=== PATIENT | male | born 1990 | race African-American/Black ===

== ENCOUNTER 2017-03-04 18:19 | Emergency (ER) | payer OTHER ==
[~2017-03-04] VITALS: Ht 190.5 cm; Wt 79.4 kg
[2017-03-04 18:38] VITALS: BP 148/93
[2017-03-04 18:49] LABS: BILIRUBIN,URINE NEGATIVE (NEG); GLUCOSE,URINE NEGATIVE (NEG); NITRITE,URINE NEGATIVE (NEG); PROTEIN,URINE NEGATIVE (NEG-TRACE); UROBILINOGEN,URINE 0.2 mg/dL (0.2 mg/dL)
--- NOTE | 2017-03-04 18:51 | PHYS DOC ---
Past Medical History Past Medical History: No Pertinent History Past Surgical History: No Surgical History Smoking: Cigarettes Alcohol Use: None Drug Use: Marijuana Adult General Chief Complaint Chief Complaint: CHEST WALL PAIN HPI HPI Patient is a 26 year old male who presents with left chest wall pain today, intermittent with movement of left shoulder or use of left pectoralis. Has spasm like pain across entire left chest. Started at rest. Denies f/c, dyspnea , cough, leg pain or swelling, hemoptysis, palpitations, diaphoresis, exertional symptoms. Also complains of burning with urination for the past few days. States he started an unknown antibiotic at home for this. Concerned it may be an STD. Denies discharge or lesions or abdominal pain. Review of Systems Review of Systems Constitutional: Denies fever or chills [] Eyes: Denies change in visual acuity, redness, or eye pain [] HENT: Denies nasal congestion or sore throat [] Respiratory: Denies cough or shortness of breath [] Cardiovascular: No additional information not addressed in HPI [] GI: Denies abdominal pain, nausea, vomiting, bloody stools or diarrhea [] : Denies hematuria [] Musculoskeletal: Denies back pain or joint pain [] Integument: Denies rash or skin lesions [] Neurologic: Denies headache, focal weakness or sensory changes [] Endocrine: Denies polyuria or polydipsia [] Current Medications Current Medications Current Medications Medications (Trade) Dose Ordered Sig/Alba Start Time Stop Time Status Last Admin Dose Admin Azithromycin (Zithromax) 1,000 mg 1X ONCE 03/04/17 19:30 03/04/17 19:31 03/04/17 19:02 1,000 MG Ceftriaxone Sodium (Rocephin Im) 250 mg 1X ONCE 03/04/17 19:30 03/04/17 19:31 03/04/17 19:05 250 MG Ibuprofen (Motrin) 400 mg 1X ONCE 03/04/17 19:30 03/04/17 19:31 03/04/17 19:02 400 MG Allergies Allergies Allergies Coded Allergies Type Severity Reaction Last Updated Verified No Known Drug Allergies 03/04/17 No Physical Exam Physical Exam Constitutional: Well developed, well nourished, no acute distress, non-toxic appearance. [] HENT: Normocephalic, atraumatic, bilateral external ears normal, oropharynx moist, nose normal. [] Eyes: PERRLA, EOM. [] Neck: Normal range of motion, supple. [] Cardiovascular:Heart rate regular rhythm [] Lungs & Thorax: Bilateral breath sounds clear to auscultation. Tenderness across left chest with no palpable or visual abnormality [] Abdomen: Bowel sounds normal, soft, no tenderness. [] Genitourinary: Declined exam Skin: Warm, dry, no erythema, no rash. [] Back: Normal ROM. [] Extremities: No tenderness, ROM intact, no edema. [] Neurologic: Alert and oriented X 3, normal motor function, normal sensory function, no focal deficits noted. [] Psychologic: Affect normal, judgement normal, mood normal. [] Current Patient Data Vital Signs Vital Signs Date Time Temp Pulse Resp B/P (MAP) Pulse Ox O2 Delivery O2 Flow Rate FiO2 03/04/17 18:38 98.9 60 18 100 Room Air 98.9 Lab Values Laboratory Tests Test 03/04/17 18:29 Urine Collection Type Unknown Urine Color Yellow Urine Clarity Clear Urine pH 7.0 Urine Specific [place] <=1.005 Urine Protein Negative mg/dL (NEG-TRACE) Urine Glucose (UA) Negative mg/dL (NEG) Urine Ketones (Stick) Negative mg/dL (NEG) Urine Blood Negative (NEG) Urine Nitrite Negative (NEG) Urine Bilirubin Negative (NEG) Urine Urobilinogen Dipstick 0.2 mg/dL (0.2 mg/dL) Urine Leukocyte Esterase Negative (NEG) Urine RBC 0 /HPF (0-2) Urine WBC 0 /HPF (0-4) Urine Bacteria 0 /HPF (0-FEW) EKG EKG EKG as interpreted by me as normal sinus rhythm, rate 60, no ST-T changes, MA 202, QTC 386, no ectopy Radiology/Procedures Radiology/Procedures Chest xray as interpreted by me with no acute cardiopulmonary disease process Course & Med Decision Making Course & Med Decision Making Pertinent Labs and Imaging studies reviewed. (See chart for details) Workup is unremarkable. Discussed supportive care. Discussed smoking cessation. Discussed safe sex practices. Discussed to follow up for high blood pressure here. Return precautions given. He understands and agrees with plan. Dragon Disclaimer Dragon Disclaimer This electronic medical record was generated, in whole or in part, using a voice recognition dictation system. Departure Departure Impression: Primary Impression: Chest pain Additional Impression: Urethritis Disposition: HOME, SELF-CARE Condition: STABLE Referrals: UNKNOWN PCP NAME (PCP) Patient Instructions: Sexually Transmitted Disease, [id number] Additional Instructions: You were treated for possible gonorrhea and chlamydia. Do not have sex for 2 weeks to assure treatment works. You will be called only if your test results are positive. Follow up with your primary care doctor. Return for any concerns. Problem Qualifiers Primary Impression: Chest pain Chest pain type: unspecified Qualified Codes: R07.9 - Chest pain, unspecified Loree STROUD MD March 04, 2017 18:51
[2017-03-04 18:59] LABS: BACTERIA,URINE 0 /HPF (0-FEW); RBC,URINE 0 /HPF (0-2); WBC,URINE 0 /HPF (0-4)
[2017-03-04] MEDS ORDERED: AZITHROMYCIN 250 MG TABLET. PO ONE (19:30)
[2017-03-04] MEDS ORDERED: cefTRIAXone IM 250 MG VIAL IM ONE (19:30)
[2017-03-04] MEDS ORDERED: IBUPROFEN 400 MG TABLET. PO ONE (19:30)
--- NOTE | 2017-03-05 06:16 | EKG ---
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
--- NOTE | 2017-03-05 07:57 | RAD ---
Chest, 2 views, 03/04/2017: History: Chest, 2 views, 03/04/2017: The heart size is normal. There is a small left apical pneumothorax estimated at 5-10% in volume. No pulmonary infiltrate is seen. There is no evidence of pleural fluid. IMPRESSION: Small left pneumothorax. Note: The findings were called to personnel in the [facility] ER at 7:54 AM on 03/05/2017.
== END 2017-03-04 19:31 | disposition home or self-care (01) ==
LOC: ER 18:19
DX: R07.89 Other chest pain (principal); N34.2 Other urethritis; F17.210 Nicotine dependence, cigarettes, uncomplicated; F12.10 Cannabis abuse, uncomplicated
CPT/HCPCS: 71020; 81001; 93005; 96372; 99285; J0696; Q0144; 87491; 87591

== ENCOUNTER 2017-03-05 09:17 | Inpatient (IN) | payer OTHER ==
[~2017-03-05] VITALS: Ht 188 cm; Wt 73.5 kg
--- NOTE | 2017-03-05 09:40 | PHYS DOC ---
Past Medical History Past Medical History: No Pertinent History Past Surgical History: No Surgical History Alcohol Use: None Drug Use: Marijuana Adult General Chief Complaint Chief Complaint: OTHER COMPLAINTS [facility] Patient is a 26 year old male presents to the emergency department for a repeat chest x-ray for pneumothorax that he had yesterday upon over read by radiology. Patient states he was seen here yesterday for chest pain and discomfort with shortness of air that started suddenly. Patient states that he is still having slight shortness of air difficulty breathing. He also states that he feels as though his heart is beating irregularly and abnormal. Patient does have a history of smoking. Patient states he is having some chest discomfort in the left upper chest. He has not taken anything for pain. Review of Systems Review of Systems Constitutional: Denies fever or chills [] Eyes: Denies change in visual acuity, redness, or eye pain [] HENT: Denies nasal congestion or sore throat [] Respiratory: Denies cough c/o shortness of breath [] Cardiovascular: No additional information not addressed in HPI [] GI: Denies abdominal pain, nausea, vomiting, bloody stools or diarrhea [] : Denies dysuria or hematuria [] Musculoskeletal: Denies back pain or joint pain [] Integument: Denies rash or skin lesions [] Neurologic: Denies headache, focal weakness or sensory changes [] Endocrine: Denies polyuria or polydipsia [] Allergies Allergies Allergies Coded Allergies Type Severity Reaction Last Updated Verified No Known Drug Allergies 03/04/17 No Physical Exam Physical Exam Constitutional: Well developed, well nourished, no acute distress, non-toxic appearance. [] HENT: Normocephalic, atraumatic, bilateral external ears normal, oropharynx moist, no oral exudates, nose normal. [] Eyes: PERRLA, EOMI, conjunctiva normal, no discharge. [] Neck: Normal range of motion, no tenderness, supple, no stridor. [] Cardiovascular:Heart rate regular rhythm, no murmur [] Lungs & Thorax: Bilateral breath sounds clear to auscultation [] Skin: Warm, dry, no erythema, no rash. [] Back: No tenderness Extremities: No tenderness, no cyanosis, no clubbing, ROM intact, no edema. [] Neurologic: Alert and oriented X 3, normal motor function, normal sensory function, no focal deficits noted. [] Psychologic: Affect normal, judgement normal, mood normal. [] Current Patient Data Vital Signs Vital Signs Date Time Temp Pulse Resp B/P (MAP) Pulse Ox O2 Delivery O2 Flow Rate FiO2 03/05/17 09:17 98.0 64 18 132/81 (98) 97 Room Air 98.0 EKG EKG EKG completed at 0944 HR 50 with SR noted, NO STEMI per Dr Watson[] Radiology/Procedures Radiology/Procedures [facility] [address] [place] [address] IMAGING REPORT Signed PATIENT: KAYLYN FERRARO ACCOUNT: [id number] : 1990 LOCATION: ER AGE: 26 SEX: M EXAM STATUS: PRE ER ORD. PHYSICIAN: ROSALVA STEWART APRN REASON: patient with small pneumo yesterday, followup CXR PROCEDURE: CHEST PA & LATERAL Examination: 2 views of the chest. History: History of left-sided pain Comparison: 03/04/2017 Findings: The cardiomediastinal silhouette grossly appears unremarkable. Small left apical pneumothorax is unchanged compared to prior exam. There is no acute infiltrate identified. Impression: Small left apical pneumothorax is unchanged compared to prior exam. DICTATED and SIGNED BY: KACY OLEARY MD DATE: 03/05/17 0938 CC: ROSALVA STEWART APRN; NO PCP ~ [] Course & Med Decision Making Course & Med Decision Making Pertinent Labs and Imaging studies reviewed. (See chart for details) [address] Graves in regards to the pneumonthorax. He recommends 100% O2 per NRB and have patient placed in as observation status. [address] Domingo in regards to observation status. [] Dragon Disclaimer Dragon Disclaimer This electronic medical record was generated, in whole or in part, using a voice recognition dictation system. Departure Departure Impression: Primary Impression: Pneumothorax Disposition: 09 ADMITTED INPATIENT Admitting Physician: Other (Spoke with both Dr Domingo and Dr Valiente) Referrals: NO PCP (PCP) ROSALVA STEWART APRN March 05, 2017 09:40
--- NOTE | 2017-03-05 09:46 | EKG ---
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
[2017-03-05] MEDS ORDERED: LACTULOSE 20 GM/30 ML SOLUTION. PO PRN (10:30)
[2017-03-05] MEDS ORDERED: MAGNESIUM HYDROXIDE 2,400 MG/30 ML ORAL.SUSP. PO PRN (10:30)
[2017-03-05] MEDS ORDERED: KETOROLAC TROMETHAMINE 30 MG/ML INJ. IV PRN (10:30)
[2017-03-05] MEDS ORDERED: MAG HYDROX/ALUMINUM HYD/SIMETH 30 ML ORAL.SUSP PO PRN (10:30)
[2017-03-05] MEDS ORDERED: ONDANSETRON PF 4 MG/2 ML VIAL. IV PRN (10:30)
[2017-03-05] MEDS ORDERED: PROCHLORPERAZINE 25 MG SUPP.RECT. PR PRN (10:30)
[2017-03-05] MEDS ORDERED: PROCHLORPERAZINE 10 MG/2 ML VIAL. IV PRN (10:30)
[2017-03-05] MEDS ORDERED: CALCIUM CARBONATE 500 MG TAB.CHEW PO PRN (10:30)
[2017-03-05] MEDS ORDERED: ACETAMINOPHEN 325 MG TABLET. PO PRN (10:30)
[2017-03-05] MEDS ORDERED: BISACODYL 10 MG SUPP.RECT. PR PRN (10:30)
--- NOTE | 2017-03-05 10:49 | ACF ---
Admission Forms Criteria PNEUMOTHORAX Clinical Indications for Admission to Inpatient Care (Place 'X' for any and all applicable criteria): Admission for ANY ONE of the following (1),(2): [ ]I. Pneumothorax caused by associated lung disease (eg, COPD, cystic fibrosis, lung cancer, AIDS)(6): [ ]II. Recurrent episode of pneumothorax9 [ ]III. Traumatic pneumothorax (10)(11)(12) [ ]IV. Tension pneumothorax [ ]V. Hypotension [ ]. Respiratory distress [ ]VII. Pneumothorax exacerbating significant comorbidity (eg, heart failure) [X]VIII. Inpatient admission required rather than observation care (see Pneumothorax: Observation Care guideline as appropriate) because of ANY ONE of the following (13)(14) [ ]a) Symptomatic pneumothorax that is progressive or persistent [ ]b) Infection identified (eg, pneumonia) that requires inpatient management [ ]c) Severe pain requiring acute inpatient management [ ]d) Supplemental O2 or respiratory therapy for over 24 hrs that are performable only in acute inpatient setting [ ]e) Chest tube placement with active evacuation (eg, suction, drainage) (15) [ ]f) Epidural analgesia [X]g) Other condition, treatment or monitoring requiring inpatient admission Extended stay beyond goal length of stay may be needed for (24) [ ]a) Secondary pneumothorax [ ]b) Pneumothorax assoc with trauma(eg, multiple fractured ribs) [ ]c) Recurrent episode of primary spontaneous pneumothorax. [ ]d) Older patients [ ]e) Tension pneumothorax [ ]f) Pulmonary edema [ ]g) Persistent air leak The original [employer] content created by [employer] has been revised. The portions of the content which have been revised are identified through the use of italic text or in bold, and [facility] has neither reviewed nor approved the modified material. All other unmodified content is copyright [employer]. Please see references footnoted in the original [employer] edition 2016 Admission Criteria Met?: Yes BRINDA DASILVA March 05, 2017 10:49
[2017-03-05] MEDS: DOCUSATE SODIUM 100 MG CAPSULE. PO SCH ×2 (11:00→21:00)
--- NOTE | 2017-03-05 11:21 | PDOC1 ---
History and Physical Date of Admission Date of Admission DATE: 03/05/17 TIME: 11:15 Identification/Chief Complaint Chief Complaint worsened left sided CP Problems: Source Source: Caregiver, Chart review, Patient History of Present Illness History of Present Illness 26 y.o AA male, no significant past medical but is a heavy smoker, consumes 1/2 ppday (has cut down from 1ppday), smoking for > 10 yrs now, came to er yesterday bec of pleuritic CP, sent home, but came back today after worsened pleuritic CP. CXR showed 10% PTX. Pulmo consulted, advised admission for OBS, Mother at bedside, lots of questions and counselling done, Heavy smoking in family (father), Denies trauma, CLaims last 3 yrs ago he felt similar pain, did not seek medical consult that time, PAst surgical none NKDA Denies etoh or recreational drugs Fam hx: HTN and smoking IMagingL i have personally reviewed,. Small left apical pneumothorax is unchanged compared to prior exam. Past Medical History Pulmonary: No pertinent hx GI: No pertinent hx Heme/Onc: No pertinent hx Hepatobiliary: No pertinent hx Psych: No pertinent hx Rheumatologic: No pertinent hx Infectious disease: No pertinent hx ENT: No pertinent hx Renal/: No pertinent hx Endocrine: No pertinent hx Dermatology: No pertinent hx Past Surgical History Past Surgical History: No pertinent history Family History Family History: Hypertension Social History Smoke: <1 pack per day ALCOHOL: none Drugs: None Current Problem List Problem List Problems Medical Problems: (1) Pneumothorax Status: Acute Problems: Current Medications Current Medications Current Medications Ondansetron HCl (Zofran) 4 mg PRN Q6HRS PRN IV NAUSEA/VOMITING; Start 03/05/17 at 10:30 Prochlorperazine Edisylate (Compazine) 10 mg PRN Q6HRS PRN IV NAUSEA/VOMITING; Start 03/05/17 at 10:30 Prochlorperazine (Compazine) 25 mg PRN Q12HR PRN CO NAUSEA/VOMITING; Start at 10:30 Al Hydroxide/Mg Hydroxide (Mylanta Plus Xs) 30 ml PRN Q3HRS PRN PO HEARTBURN / GAS; Start 03/05/17 at 10:30 Calcium Carbonate/ Glycine (Tums) 500 mg PRN Q3HRS PRN PO UPSET STOMACH; Start 03/05/17 at 10:30 Oxycodone HCl (Roxicodone) 5 mg PRN Q3HRS PRN PO BREAKTHROUGH PAIN; Start 03/05 at 10:30 Ketorolac Tromethamine (Toradol) 30 mg PRN Q6HRS PRN IV PAIN; Start 03/05/17 at 10:30; Stop 03/10/17 at 10:29 Acetaminophen (Tylenol) 650 mg PRN Q6HRS PRN PO Headaches, Temp > 101.5F; Start 03/05/17 at 10:30 Docusate Sodium (Colace) 100 mg BID PO ; Start 03/05/17 at 11:00 Magnesium Hydroxide (Milk Of Magnesia) 2,400 mg PRN Q12HR PRN PO CONSTIPATION; Start 03/05/17 at 10:30 Lactulose 20 gm PRN Q12HR PRN PO CONSTIPATION; Start 03/05/17 at 10:30 Bisacodyl (Dulcolax Supp) 10 mg PRN DAILY PRN CO CONSTIPATION; Start 03/05/17 at 10:30 Allergies Allergies: Coded Allergies: No Known Drug Allergies (Unverified , 03/04/17) ROS General: No: Chills, Night Sweats, Fatigue, Malaise, Appetite, Other PSYCHOLOGICAL ROS: No: Anxiety, Behavioral Disorder, Concentration difficultie , Decreased libido, Depression, Disorientation, Hallucinations, Hostility, Irritablity, Memory difficulties, Mood Swings, Obsessive thoughts, Physical abuse, Sexual abuse, Sleep disturbances, Suicidal ideation, Other Eyes: No Blurry vision, No Decreased vision, No Double vision, No Dry eyes, No Excessive tearing, No Eye Pain, No Itchy Eyes, No Loss of vision, No Photophobia , No Scotomata, No Uses contacts, No Uses glasses, No Other HEENT: No: Heacaches, Visual Changes, Hearing change, Nasal congestion, Nasal discharge, Oral lesions, Sinus pain, Sore Throat, Epistaxis, Sneezing, Snoring, Tinnitus, Vertigo, Vocal changes, Other Hematological and Lymphatic: No: Bleeding Problems, Blood Clots, Blood Transfusions, Brusing, Night Sweats, Pallor, Swollen Lymph Nodes, Other Breast: No New/Changing Breast Lumps, No Nipple changes, No Nipple discharge, No Other Respiratory: YES: Pleuritic Pain, Shortness of breath Cardiovascular: No Chest Pain, No Palpitations, No Orthopnea, No Paroxysmal Noc. Dyspnea, No Edema, No Lt Headedness, No Other Gastrointestinal: No Nausea, No Vomiting, No Abdominal Pain, No Diarrhea, No Constipation, No Melena, No Hematochezia, No Other Genitourinary: No Dysuria, No Frequency, No Incontinence, No Hematuria, No Retention, No Discharge, No Urgency, No Pain, No Flank Pain, No Other, No , No , No , No , No , No , No Musculoskeletal: No Gait Disturbance, No Joint Pain, No Joint Stiffness, No Joint Swelling, No Muscle Pain, No Muscular Weakness, No Pain In:, No Swelling In:, No Other Neurological: No Behavorial Changes, No Bowel/Bladder ControlChng, No Confusion , No Dizziness, No Gait Disturbance, No Headaches, No Impaired Coord/balance, No Memory Loss, No Numbness/Tingling, No Seizures, No Speech Problems, No Tremors, No Visual Changes, No Weakness, No Other Skin: No Dry Skin, No Eczema, No Hair Changes, No Lumps, No Mole Changes, No Mottling, No Nail Changes, No Pruritus, No Rash, No Skin Lesion Changes, No Other, No Acne Physical Exam General: Alert, Oriented X3, Cooperative, No acute distress HEENT: Atraumatic, PERRLA Lungs: Normal air movement, Other (dec BS left upper lobe) Heart: S1S2, RRR, no thrills, no rubs, no gallops, no murmurs Cardiovascular: S1, S2 Breasts: Normal Abdomen: Normal bowel sounds, Soft, No tenderness, No hepatosplenomegaly, No masses Male Genitals Exam: normal genitalia, normal prostate Rectal Exam: not examined PELVIC: Nml ext genitalia Extremities: No clubbing, No cyanosis, No edema, Normal pulses, No tenderness/ swelling Skin: No rashes, No breakdown, No significant lesion Neuro: Normal gait, Normal speech, Strength at 5/5 X4 ext, Normal tone, Sensation intact, Cranial nerves 3-12 NL, Reflexes 2+ Psych/Mental Status: Mental status NL, Mood NL Vitals Vitals Vital Signs Date Time Temp Pulse Resp B/P (MAP) Pulse Ox O2 Delivery O2 Flow Rate FiO2 03/05/17 09:17 98.0 64 18 132/81 (98) 97 Room Air 98.0 VTE Prophylaxis Ordered VTE Prophylaxis Devices: Yes VTE Pharmacological Prophylaxi: Yes Assessment/Plan Assessment/Plan 1. Small left apical pneumothorax, spontaneous 2. SMOker PLAN: OBS admit Toradol prn for pain O2 support CXR again gary, Pulmo consult Nicotine prn HEavy counselling done, at least 30 mins in room alone Seen at ER EILEEN ANGELES MD March 05, 2017 11:21
[2017-03-05] MEDS ORDERED: IBUPROFEN 600 MG TABLET. PO PRN (11:30)
--- NOTE | 2017-03-05 12:00 | PDOC ---
Provider Note Provider Note dictated MIKE TREJO MD March 05, 2017 12:00
[2017-03-05 12:28] VITALS: BP 129/83
--- NOTE | 2017-03-05 12:44 | CONS ---
DATE OF CONSULTATION: 03/05/2017 ATTENDING PHYSICIAN: Dr. Domingo. REASON FOR CONSULTATION: Chest pain and pneumothorax. HISTORY OF PRESENT ILLNESS: The patient is a 26-year-old -English male who has no significant past medical history except tobacco use for 10 years, half pack per day. He presented to the ER yesterday with complaint of sharp left-sided pleuritic chest pain. He said it felt like a burning sensation as well. He took some Tums without much improvement. His chest x-ray has shown about 10% pneumothorax. He was sent from the ER. He came back with similar symptoms, which were nonresolving. Another chest x-ray showed unchanged left apical pneumothorax about 10% in size. The patient states that similar episodes have happened in the past as well. About a month ago, he had similar presentation of about same size, and also about a year ago, he had same presentation when he had sharp chest pain, but he never had any medical attention until this hospitalization. No history of any other substance abuse. PAST MEDICAL HISTORY: Unremarkable. PAST SURGICAL HISTORY: Unremarkable. FAMILY HISTORY: Hypertension. SOCIAL HISTORY: Smoker, half pack per day for 10 years. REVIEW OF SYSTEMS: Twelve-point system was obtained. Pertinent positives discussed in my history of present illness, otherwise noncontributory. All systems that were negative were reviewed as well. MEDICATIONS: Reviewed as listed in the MRAD. PHYSICAL EXAMINATION: VITAL SIGNS: Stable. Pulse oximetry is 97% on room air. NECK: Supple. LUNGS: Diminished breath sounds bilaterally. CARDIOVASCULAR: Regular rate and rhythm. ABDOMEN: Soft. EXTREMITIES: With no pitting edema. LABORATORY DATA: Reviewed. His urinalysis was available, but no other labs were seen. IMPRESSION: 1. Spontaneous left-sided pneumothorax about 10% in size. I suspect that this may be his second or third episode. He had similar presentations a month ago and also a year ago, but he never had any medical attention at that time. At this point, the pneumothorax is small and does not need chest tube. I would place him on 100% FiO2 and followup chest x-ray. I will also do a CT chest to rule out any apical blebs. 2. History of tobaccoism, half pack per day for 10 years. RECOMMENDATIONS: 1. A 100% oxygen for 24 hours and repeat chest x-ray in a.m. to make sure there is improvement in the pneumothorax. 2. We will obtain noncontrast CT chest in the morning to assess for apical blebs. 3. I have discussed with the patient and the mother. It appears clinically that this would be his second or third pneumothorax in the same site, though he never had any medical attention in the past two occasions. If the CT chest shows apical blebs, then he may be a candidate for bullectomy/VAT/mechanical pleurodesis. We will make further recommendations after review of CT chest. MIKE TREJO MD DR: CASEY/adrián JOB#: [id number] / [id number]
[2017-03-05 14:55] VITALS: BP 124/82
[2017-03-05 19:00] VITALS: BP 125/80
[2017-03-05 20:03] VITALS: BP 125/80
[2017-03-05 23:00] VITALS: BP 104/64
[2017-03-06 03:16] VITALS: BP 120/77
[2017-03-06 07:00] VITALS: BP 122/70
[2017-03-06] MEDS: DOCUSATE SODIUM 100 MG CAPSULE. PO SCH ×2 (08:40→21:00)
--- NOTE | 2017-03-06 09:08 | RAD ---
Examination: CT chest without contrast History: History of apical blebs, pneumothorax Comparison: Radiograph from 03/05/2017 Technique: Axial CT images of the chest were performed without contrast. Coronal and sagittal reformats are performed. PQRS Compliance Statement: One or more of the following individualized dose reduction techniques were utilized for this examination: 1. Automated exposure control 2. Adjustment of the mA and/or kV according to patient size 3. Use of iterative reconstruction technique Findings: Small left apical and left basal pneumothorax identified. Small apical blebs are identified bilaterally. There is minimal apical lung thickening identified in the left lung apex. No evidence of pleural effusion. The central airways are patent. The heart size grossly appears unremarkable The visualized noncontrasted liver, spleen, grossly appears unremarkable. No evidence of lytic bony destructive lesion identified Impression: 1. Small left apical and small left anterior basal pneumothorax is identified.
--- NOTE | 2017-03-06 09:12 | RAD ---
Portable chest, 03/06/2017: History: Follow-up pneumothorax Comparison is made to yesterday's study. The small left-sided pneumothorax has decreased in size. The lungs are clear. The heart size is normal. There is no evidence of pleural fluid. No new abnormality is detected. IMPRESSION: Improving small left pneumothorax.
--- NOTE | 2017-03-06 09:56 | PDOC ---
PULMONARY PROGRESS NOTES Subjective still has left CP PTX reduced to 5% Vitals Vital Signs Date Time Temp Pulse Resp B/P (MAP) Pulse Ox O2 Delivery O2 Flow Rate FiO2 03/06/17 07:00 97.7 50 20 122/70 (87) 99 Room Air 97.7 03/05/17 19:45 15.0 General: Alert, No acute distress Lungs: Clear Cardiovascular: S1, S2 Abdomen: Soft Neuro Exam: Alert Extremities: No Edema Skin: Warm Impression . 1. Spontaneous left-sided pneumothorax about 10% in size. I suspect that this may be his second or third episode. He had similar presentations a month ago and also a year ago, but he never had any medical attention at that time. At this point, the pneumothorax has improved with 100%FIO2. CT chest shows apical blebs. 2. History of tobaccoism, half pack per day for 10 years. Plan . 1. Nasal canula 2. Pain control 3. I have discussed with the patient and the mother. It appears clinically that this would be his second or third pneumothorax in the same site, though he never had any medical attention in the past two occasions. CT chest shows apical blebs, he is reasonable candidate for bullectomy/VAT/mechanical pleurodesis. will consult [facility]. All agree. d/w MIKE Garnica MD March 06, 2017 09:56
[2017-03-06 11:00] VITALS: BP 125/82
[2017-03-06 11:01] LABS: BASO % 1 % (0-3); EOS % 5 % (0-3); HEMATOCRIT 47.4 % (39.0-53.0); LYMPH # 1.3 x10^3/uL (1.0-4.8); LYMPH % 37 % (24-48); MEAN CORPUSCULAR HEMOGLOBIN 32 pg (25-35); MEAN CORPUSCULAR HGB CONC 34 g/dL (31-37); MEAN CORPUSCULAR VOLUME 95 fL (79-100); MONO % 9 % (0-9); NEUT % 49 % (31-73); PLATELET COUNT 179 x10^3/uL (140-400); RED BLOOD COUNT 4.99 x10^6/uL (4.30-5.70); RED CELL DISTRIBUTION WIDTH 13.1 % (11.5-14.5); WHITE BLOOD COUNT 3.6 x10^3/uL (4.0-11.0)
[2017-03-06 11:13] LABS: CALCIUM 9.3 mg/dL (8.5-10.1); CREATININE 0.9 mg/dL (0.7-1.3); GFR 123.4; POTASSIUM 3.8 mmol/L (3.5-5.1)
--- NOTE | 2017-03-06 11:16 | PDOC ---
PROGRESS NOTES Chief Complaint Chief Complaint chest pain 1. Small left apical pneumothorax, spontaneous 2. tobacco use 3. anxiety d/o 4. pulmonary blebs on CT History of Present Illness History of Present Illness CT surg consult discussed with PULM discussed with patient and mom at length Nicotine prn Vitals Vitals Vital Signs Date Time Temp Pulse Resp B/P (MAP) Pulse Ox O2 Delivery O2 Flow Rate FiO2 03/06/17 07:00 97.7 50 20 122/70 (87) 99 Room Air 97.7 03/05/17 19:45 15.0 Physical Exam General: Alert, Oriented X3, Cooperative, No acute distress Heart: Regular rate Lungs: Clear Abdomen: Normal bowel sounds, Soft, No tenderness, No hepatosplenomegaly, No masses Extremities: No clubbing, No cyanosis, No edema, Normal pulses, No tenderness/ swelling Skin: No rashes, No breakdown, No significant lesion Labs LABS Laboratory Tests Test 03/06/17 10:30 White Blood Count 3.6 x10^3/uL (4.0-11.0) Red Blood Count 4.99 x10^6/uL (4.30-5.70) Hemoglobin 16.0 g/dL (13.0-17.5) Hematocrit 47.4 % (39.0-53.0) Mean Corpuscular Volume 95 fL (79-100) Mean Corpuscular Hemoglobin 32 pg (25-35) Mean Corpuscular Hemoglobin Concent 34 g/dL (31-37) Red Cell Distribution Width 13.1 % (11.5-14.5) Platelet Count 179 x10^3/uL (140-400) Neutrophils (%) (Auto) 49 % (31-73) Lymphocytes (%) (Auto) 37 % (24-48) Monocytes (%) (Auto) 9 % (0-9) Eosinophils (%) (Auto) 5 % (0-3) Basophils (%) (Auto) 1 % (0-3) Neutrophils # (Auto) 1.8 x10^3uL (1.8-7.7) Lymphocytes # (Auto) 1.3 x10^3/uL (1.0-4.8) Monocytes # (Auto) 0.3 x10^3/uL (0.0-1.1) Eosinophils # (Auto) 0.2 x10^3/uL (0.0-0.7) Basophils # (Auto) 0.0 x10^3/uL (0.0-0.2) Review of Systems Review of Systems pain, pleuritic, no n.v.d Assessment and Plan Assessmemt and Plan Problems Medical Problems: (1) Pneumothorax Status: Acute Problems: Comment Review of Relevant I have reviewed the following items steve (where applicable) has been applied. Labs Laboratory Tests Test 03/06/17 10:30 White Blood Count 3.6 x10^3/uL (4.0-11.0) Red Blood Count 4.99 x10^6/uL (4.30-5.70) Hemoglobin 16.0 g/dL (13.0-17.5) Hematocrit 47.4 % (39.0-53.0) Mean Corpuscular Volume 95 fL (79-100) Mean Corpuscular Hemoglobin 32 pg (25-35) Mean Corpuscular Hemoglobin Concent 34 g/dL (31-37) Red Cell Distribution Width 13.1 % (11.5-14.5) Platelet Count 179 x10^3/uL (140-400) Neutrophils (%) (Auto) 49 % (31-73) Lymphocytes (%) (Auto) 37 % (24-48) Monocytes (%) (Auto) 9 % (0-9) Eosinophils (%) (Auto) 5 % (0-3) Basophils (%) (Auto) 1 % (0-3) Neutrophils # (Auto) 1.8 x10^3uL (1.8-7.7) Lymphocytes # (Auto) 1.3 x10^3/uL (1.0-4.8) Monocytes # (Auto) 0.3 x10^3/uL (0.0-1.1) Eosinophils # (Auto) 0.2 x10^3/uL (0.0-0.7) Basophils # (Auto) 0.0 x10^3/uL (0.0-0.2) Laboratory Tests Test 03/06/17 10:30 White Blood Count 3.6 x10^3/uL (4.0-11.0) Red Blood Count 4.99 x10^6/uL (4.30-5.70) Hemoglobin 16.0 g/dL (13.0-17.5) Hematocrit 47.4 % (39.0-53.0) Mean Corpuscular Volume 95 fL (79-100) Mean Corpuscular Hemoglobin 32 pg (25-35) Mean Corpuscular Hemoglobin Concent 34 g/dL (31-37) Red Cell Distribution Width 13.1 % (11.5-14.5) Platelet Count 179 x10^3/uL (140-400) Neutrophils (%) (Auto) 49 % (31-73) Lymphocytes (%) (Auto) 37 % (24-48) Monocytes (%) (Auto) 9 % (0-9) Eosinophils (%) (Auto) 5 % (0-3) Basophils (%) (Auto) 1 % (0-3) Neutrophils # (Auto) 1.8 x10^3uL (1.8-7.7) Lymphocytes # (Auto) 1.3 x10^3/uL (1.0-4.8) Monocytes # (Auto) 0.3 x10^3/uL (0.0-1.1) Eosinophils # (Auto) 0.2 x10^3/uL (0.0-0.7) Basophils # (Auto) 0.0 x10^3/uL (0.0-0.2) Medications Current Medications Ondansetron HCl (Zofran) 4 mg PRN Q6HRS PRN IV NAUSEA/VOMITING; Start 03/05/17 at 10:30 Prochlorperazine Edisylate (Compazine) 10 mg PRN Q6HRS PRN IV NAUSEA/VOMITING; Start 03/05/17 at 10:30 Prochlorperazine (Compazine) 25 mg PRN Q12HR PRN [place] NAUSEA/VOMITING; Start at 10:30 Al Hydroxide/Mg Hydroxide (Mylanta Plus Xs) 30 ml PRN Q3HRS PRN PO HEARTBURN / GAS; Start 03/05/17 at 10:30 Calcium Carbonate/ Glycine (Tums) 500 mg PRN Q3HRS PRN PO UPSET STOMACH; Start 03/05/17 at 10:30 Oxycodone HCl (Roxicodone) 5 mg PRN Q3HRS PRN PO BREAKTHROUGH PAIN; Start 03/05 at 10:30 Ketorolac Tromethamine (Toradol) 30 mg PRN Q6HRS PRN IV PAIN; Start 03/05/17 at 10:30; Stop 03/10/17 at 10:29 Acetaminophen (Tylenol) 650 mg PRN Q6HRS PRN PO Headaches, Temp > 101.5F; Start 03/05/17 at 10:30 Docusate Sodium (Colace) 100 mg BID PO ; Start 03/05/17 at 11:00 Magnesium Hydroxide (Milk Of Magnesia) 2,400 mg PRN Q12HR PRN PO CONSTIPATION; Start 03/05/17 at 10:30 Lactulose 20 gm PRN Q12HR PRN PO CONSTIPATION; Start 03/05/17 at 10:30 Bisacodyl (Dulcolax Supp) 10 mg PRN DAILY PRN [place] CONSTIPATION; Start 03/05/17 at 10:30 Ibuprofen (Motrin) 600 mg PRN Q6HRS PRN PO INFLAMMATION; Start 03/05/17 at 11: 30 Vitals/I & O Vital Sign - Last 24 Hours 03/05/17 03/05/17 03/05/17 03/05/17 12:21 12:28 14:55 19:00 Temp 98.5 98.4 97.7 98.5 98.4 97.7 Pulse 56 53 60 Resp 14 20 18 B/P (MAP) 129/83 (98) 124/82 (96) 125/80 (95) Pulse Ox 98 100 100 O2 Delivery Non-Rebreather Room Air O2 Flow Rate 15.0 03/05/17 03/05/17 03/06/17 03/06/17 19:45 23:00 03:16 07:00 Temp 97.5 97.6 97.7 97.5 97.6 97.7 Pulse 51 50 50 Resp 18 18 20 B/P (MAP) 104/64 (77) 120/77 (91) 122/70 (87) Pulse Ox 99 100 99 O2 Delivery Non-Rebreather Room Air O2 Flow Rate 15.0 Intake and Output 03/05/17 03/05/17 03/06/17 14:59 22:59 06:59 Intake Total 450 ml Balance 450 ml PACO DYSON MD March 06, 2017 11:16
[2017-03-06 15:00] VITALS: BP 124/73
[2017-03-06 16:35] LABS: PROTHROMBIN TIME PATIENT 12.6 SEC (11.7-14.0)
--- NOTE | 2017-03-06 16:44 | PDOC2 ---
CONSULT Date of Consult Date of Consult DATE: 03/06/17 TIME: 16:32 Reason for Consult Reason for Consult: Recurrent left pneumothorax Referring Physician Referring Physician: Mac Graves MD Identification/Chief Complaint Chief Complaint Shortness of breath and left-sided pleuritic pain Source Source: Chart review, Patient History of Present Illness Reason for Visit: Mr. Summers is a 26-year-old otherwise healthy male, who presented to our emergency room with acute onset of shortness of breath and left-sided pleuritic pain. A chest x-ray he was found to have a left-sided pneumothorax approximately 10%. This was treated conservatively and has now nearly resolved. The patient reports that he has had 2 analogous episodes which were very bothersome and concerning for him, nevertheless he never seek medical attention. CT of the chest showed that he has a relatively large bleb at the apex of the left upper lobe. The smaller blebs in the right upper lobe. As this appears to be a recurrent spontaneous pneumothorax, I was consulted to consider the patient for a left VATS, wedge resection of the left upper lobe bullous and pleurodesis. Past Medical History Pulmonary: No pertinent hx GI: No pertinent hx Heme/Onc: No pertinent hx Hepatobiliary: No pertinent hx Psych: No pertinent hx Musculoskeletal: Other (pelvic fracture) Rheumatologic: No pertinent hx Infectious disease: No pertinent hx ENT: No pertinent hx Renal/: No pertinent hx Endocrine: No pertinent hx Dermatology: No pertinent hx Past Surgical History Past Surgical History: No pertinent history Family History Family History: Hypertension Social History <1 pack per day ALCOHOL: none Drugs: None Current Problem List Problem List Problems Medical Problems: (1) Pneumothorax Status: Acute Current Medications Current Medications Current Medications Ondansetron HCl (Zofran) 4 mg PRN Q6HRS PRN IV NAUSEA/VOMITING 1ST CHOICE; Start 03/05/17 at 10:30 Prochlorperazine Edisylate (Compazine) 10 mg PRN Q6HRS PRN IV NAUSEA/VOMITING 2ND CHOICE; Start 03/05/17 at 10:30 Prochlorperazine (Compazine) 25 mg PRN Q12HR PRN [place] NAUSEA/VOMITING; Start at 10:30 Al Hydroxide/Mg Hydroxide (Mylanta Plus Xs) 30 ml PRN Q3HRS PRN PO HEARTBURN / GAS; Start 03/05/17 at 10:30 Calcium Carbonate/ Glycine (Tums) 500 mg PRN Q3HRS PRN PO UPSET STOMACH; Start 03/05/17 at 10:30 Oxycodone HCl (Roxicodone) 5 mg PRN Q3HRS PRN PO BREAKTHROUGH PAIN; Start 03/05 at 10:30 Ketorolac Tromethamine (Toradol) 30 mg PRN Q6HRS PRN IV PAIN; Start 03/05/17 at 10:30; Stop 03/10/17 at 10:29 Acetaminophen (Tylenol) 650 mg PRN Q6HRS PRN PO Headaches, Temp > 101.5F; Start 03/05/17 at 10:30 Docusate Sodium (Colace) 100 mg BID PO ; Start 03/05/17 at 11:00 Magnesium Hydroxide (Milk Of Magnesia) 2,400 mg PRN Q12HR PRN PO CONSTIPATION; Start 03/05/17 at 10:30 Lactulose 20 gm PRN Q12HR PRN PO CONSTIPATION; Start 03/05/17 at 10:30 Bisacodyl (Dulcolax Supp) 10 mg PRN DAILY PRN [place] CONSTIPATION; Start 03/05/17 at 10:30 Ibuprofen (Motrin) 600 mg PRN Q6HRS PRN PO INFLAMMATION Last administered on t 12:33; Start 03/05/17 at 11:30 Allergies Allergies: Coded Allergies: No Known Drug Allergies (Unverified , 03/07/17) ROS General: No: Chills, Night Sweats, Fatigue, Malaise, Appetite PSYCHOLOGICAL ROS: No: Anxiety, Behavioral Disorder, Concentration difficultie , Decreased libido, Depression, Disorientation, Hallucinations, Hostility, Irritablity, Memory difficulties, Mood Swings, Obsessive thoughts, Physical abuse, Sexual abuse, Sleep disturbances, Suicidal ideation Eyes: No Blurry vision, No Decreased vision, No Double vision, No Dry eyes, No Excessive tearing, No Eye Pain, No Itchy Eyes, No Loss of vision, No Photophobia , No Scotomata, No Uses contacts, No Uses glasses HEENT: No: Heacaches, Visual Changes, Hearing change, Nasal congestion, Nasal discharge, Oral lesions, Sinus pain, Sore Throat, Epistaxis, Sneezing, Snoring, Tinnitus, Vertigo, Vocal changes ALLERGY AND IMMUNOLOGY: No: Hives, Insect Bite Sensitivity, Itchy/Watery Eyes, Nasal Congestion, Post Nasal Drip, Seasonal Allergies Hematological and Lymphatic: No: Bleeding Problems, Blood Clots, Blood Transfusions, Brusing, Night Sweats, Pallor, Swollen Lymph Nodes ENDOCRINE: No: Breast Changes, Galactorrhea, Hair Pattern Changes, Hot Flashes , Malaise/lethargy, Mood Swings, Palpitations, Polydipsia/polyuria, Skin Changes , Temperature Intolerance, Unexpected Weight Changes Respiratory: YES: Pleuritic Pain, Shortness of breath, No: Cough, Hemoptysis, Orthopnea, SOB with excertion, Sputum Changes, Stridor , Tachypnea, Wheezing Cardiovascular: No Chest Pain, No Palpitations, No Orthopnea, No Paroxysmal Noc. Dyspnea, No Edema, No Lt Headedness Gastrointestinal: No Nausea, No Vomiting, No Abdominal Pain, No Diarrhea, No Constipation, No Melena, No Hematochezia Genitourinary: No Dysuria, No Frequency, No Incontinence, No Hematuria, No Retention, No Discharge, No Urgency, No Pain, No Flank Pain Musculoskeletal: No Gait Disturbance, No Joint Pain, No Joint Stiffness, No Joint Swelling, No Muscle Pain, No Muscular Weakness, No Pain In:, No Swelling In: Neurological: No Behavorial Changes, No Bowel/Bladder ControlChng, No Confusion , No Dizziness, No Gait Disturbance, No Headaches, No Impaired Coord/balance, No Memory Loss, No Numbness/Tingling, No Seizures, No Speech Problems, No Tremors, No Visual Changes, No Weakness Skin: No Dry Skin, No Eczema, No Hair Changes, No Lumps, No Mole Changes, No Mottling, No Nail Changes, No Pruritus, No Rash, No Skin Lesion Changes, No Acne Physical Exam General: Alert, Oriented X3, No acute distress HEENT: Atraumatic, PERRLA, EOMI Lungs: Normal air movement Heart: Regular rate, Normal S1, Normal S2 Abdomen: Normal bowel sounds, Soft, No tenderness, No hepatosplenomegaly Extremities: No edema, Normal pulses Skin: No significant lesion Neuro: Normal gait, Normal speech, Strength at 5/5 X4 ext, Normal tone, Sensation intact, Cranial nerves 3-12 NL Psych/Mental Status: Mental status NL MUSCULOSKELETAL: No deformity Vitals VITALS Vital Signs Date Time Temp Pulse Resp B/P (MAP) Pulse Ox O2 Delivery O2 Flow Rate FiO2 03/06/17 15:00 98.2 62 20 124/73 (90) 99 Nasal Cannula 4.0 98.2 Labs Labs Laboratory Tests Test 03/06/17 10:30 White Blood Count 3.6 x10^3/uL (4.0-11.0) Red Blood Count 4.99 x10^6/uL (4.30-5.70) Hemoglobin 16.0 g/dL (13.0-17.5) Hematocrit 47.4 % (39.0-53.0) Mean Corpuscular Volume 95 fL (79-100) Mean Corpuscular Hemoglobin 32 pg (25-35) Mean Corpuscular Hemoglobin Concent 34 g/dL (31-37) Red Cell Distribution Width 13.1 % (11.5-14.5) Platelet Count 179 x10^3/uL (140-400) Neutrophils (%) (Auto) 49 % (31-73) Lymphocytes (%) (Auto) 37 % (24-48) Monocytes (%) (Auto) 9 % (0-9) Eosinophils (%) (Auto) 5 % (0-3) Basophils (%) (Auto) 1 % (0-3) Neutrophils # (Auto) 1.8 x10^3uL (1.8-7.7) Lymphocytes # (Auto) 1.3 x10^3/uL (1.0-4.8) Monocytes # (Auto) 0.3 x10^3/uL (0.0-1.1) Eosinophils # (Auto) 0.2 x10^3/uL (0.0-0.7) Basophils # (Auto) 0.0 x10^3/uL (0.0-0.2) Sodium Level 139 mmol/L (136-145) Potassium Level 3.8 mmol/L (3.5-5.1) Chloride Level 103 mmol/L (98-107) Carbon Dioxide Level 29 mmol/L (21-32) Anion Gap 7 (6-14) Blood Urea Nitrogen 14 mg/dL (8-26) Creatinine 0.9 mg/dL (0.7-1.3) Estimated GFR (Cockcroft-Gault) 123.4 Glucose Level 85 mg/dL (70-99) Calcium Level 9.3 mg/dL (8.5-10.1) Laboratory Tests Test 03/06/17 10:30 White Blood Count 3.6 x10^3/uL (4.0-11.0) Red Blood Count 4.99 x10^6/uL (4.30-5.70) Hemoglobin 16.0 g/dL (13.0-17.5) Hematocrit 47.4 % (39.0-53.0) Mean Corpuscular Volume 95 fL (79-100) Mean Corpuscular Hemoglobin 32 pg (25-35) Mean Corpuscular Hemoglobin Concent 34 g/dL (31-37) Red Cell Distribution Width 13.1 % (11.5-14.5) Platelet Count 179 x10^3/uL (140-400) Neutrophils (%) (Auto) 49 % (31-73) Lymphocytes (%) (Auto) 37 % (24-48) Monocytes (%) (Auto) 9 % (0-9) Eosinophils (%) (Auto) 5 % (0-3) Basophils (%) (Auto) 1 % (0-3) Neutrophils # (Auto) 1.8 x10^3uL (1.8-7.7) Lymphocytes # (Auto) 1.3 x10^3/uL (1.0-4.8) Monocytes # (Auto) 0.3 x10^3/uL (0.0-1.1) Eosinophils # (Auto) 0.2 x10^3/uL (0.0-0.7) Basophils # (Auto) 0.0 x10^3/uL (0.0-0.2) Sodium Level 139 mmol/L (136-145) Potassium Level 3.8 mmol/L (3.5-5.1) Chloride Level 103 mmol/L (98-107) Carbon Dioxide Level 29 mmol/L (21-32) Anion Gap 7 (6-14) Blood Urea Nitrogen 14 mg/dL (8-26) Creatinine 0.9 mg/dL (0.7-1.3) Estimated GFR (Cockcroft-Gault) 123.4 Glucose Level 85 mg/dL (70-99) Calcium Level 9.3 mg/dL (8.5-10.1) Images Images CT chest: Small left apical and left basal pneumothorax identified. Small apical blebs are identified bilaterally. There is minimal apical lung thickening identified in the left lung apex. No evidence of pleural effusion. The central airways are patent. The heart size grossly appears unremarkable The visualized noncontrasted liver, spleen, grossly appears unremarkable. No evidence of lytic bony destructive lesion identified Impression: 1. Small left apical and small left anterior basal pneumothorax is identified. Assessment/Plan Assessment/Plan 26-year-old otherwise healthy male, presents with recurrent left-sided pneumothorax. This appears to be his third episode. Bullous is present at the apex of the left upper lobe. The patient is certainly a candidate for a left VATS, wedge resection of the left upper lobe bullous and pleurodesis. The risks, benefits and limitations of the procedure were explained to the patient who agrees to proceed. Informed consent has been obtained. Plan for VATS, wedge resection of the left upper lobe bullous and talc pleurodesis, tomorrow March 07, 2017. NPO after midnight Type and screen Coags SAMAN BRODERICK MD March 06, 2017 16:44
[2017-03-06 19:00] VITALS: BP 132/86
[2017-03-06 23:00] VITALS: BP 130/79
[2017-03-07 03:00] VITALS: BP 112/66
[2017-03-07 07:00] VITALS: BP 110/63
[2017-03-07] MEDS: DOCUSATE SODIUM 100 MG CAPSULE. PO SCH ×2 (07:55→20:45)
--- NOTE | 2017-03-07 09:34 | PDOC ---
PROGRESS NOTES Chief Complaint Chief Complaint 1. Small left apical pneumothorax, spontaneous 2. tobacco use 3. anxiety d/o 4. pulm blebs on CT History of Present Illness History of Present Illness plan to OR today for wedge and pleurodesis Nicotine prn Vitals Vitals Vital Signs Date Time Temp Pulse Resp B/P (MAP) Pulse Ox O2 Delivery O2 Flow Rate FiO2 03/07/17 07:55 Nasal Cannula 4.0 03/07/17 07:00 97.7 57 16 110/63 (79) 100 97.7 Physical Exam General: Alert, Oriented X3, No acute distress Heart: Regular rate, Normal S1, Normal S2 Lungs: Clear Abdomen: Normal bowel sounds, Soft, No tenderness, No hepatosplenomegaly Extremities: No clubbing, No edema, Normal pulses Skin: No significant lesion Labs LABS Laboratory Tests Test 03/06/17 10:30 03/06/17 16:10 White Blood Count 3.6 x10^3/uL (4.0-11.0) Red Blood Count 4.99 x10^6/uL (4.30-5.70) Hemoglobin 16.0 g/dL (13.0-17.5) Hematocrit 47.4 % (39.0-53.0) Mean Corpuscular Volume 95 fL (79-100) Mean Corpuscular Hemoglobin 32 pg (25-35) Mean Corpuscular Hemoglobin Concent 34 g/dL (31-37) Red Cell Distribution Width 13.1 % (11.5-14.5) Platelet Count 179 x10^3/uL (140-400) Neutrophils (%) (Auto) 49 % (31-73) Lymphocytes (%) (Auto) 37 % (24-48) Monocytes (%) (Auto) 9 % (0-9) Eosinophils (%) (Auto) 5 % (0-3) Basophils (%) (Auto) 1 % (0-3) Neutrophils # (Auto) 1.8 x10^3uL (1.8-7.7) Lymphocytes # (Auto) 1.3 x10^3/uL (1.0-4.8) Monocytes # (Auto) 0.3 x10^3/uL (0.0-1.1) Eosinophils # (Auto) 0.2 x10^3/uL (0.0-0.7) Basophils # (Auto) 0.0 x10^3/uL (0.0-0.2) Sodium Level 139 mmol/L (136-145) Potassium Level 3.8 mmol/L (3.5-5.1) Chloride Level 103 mmol/L (98-107) Carbon Dioxide Level 29 mmol/L (21-32) Anion Gap 7 (6-14) Blood Urea Nitrogen 14 mg/dL (8-26) Creatinine 0.9 mg/dL (0.7-1.3) Estimated GFR (Cockcroft-Gault) 123.4 Glucose Level 85 mg/dL (70-99) Calcium Level 9.3 mg/dL (8.5-10.1) Prothrombin Time 12.6 SEC (11.7-14.0) Prothromb Time International Ratio 1.0 (0.8-1.1) Activated Partial Thromboplast Time 30 SEC (24-38) Review of Systems Review of Systems pain with deep inspiration, Assessment and Plan Assessmemt and Plan Problems Medical Problems: (1) Pneumothorax Status: Acute Problems: Comment Review of Relevant I have reviewed the following items steve (where applicable) has been applied. Labs Laboratory Tests Test 03/06/17 10:30 03/06/17 16:10 White Blood Count 3.6 x10^3/uL (4.0-11.0) Red Blood Count 4.99 x10^6/uL (4.30-5.70) Hemoglobin 16.0 g/dL (13.0-17.5) Hematocrit 47.4 % (39.0-53.0) Mean Corpuscular Volume 95 fL (79-100) Mean Corpuscular Hemoglobin 32 pg (25-35) Mean Corpuscular Hemoglobin Concent 34 g/dL (31-37) Red Cell Distribution Width 13.1 % (11.5-14.5) Platelet Count 179 x10^3/uL (140-400) Neutrophils (%) (Auto) 49 % (31-73) Lymphocytes (%) (Auto) 37 % (24-48) Monocytes (%) (Auto) 9 % (0-9) Eosinophils (%) (Auto) 5 % (0-3) Basophils (%) (Auto) 1 % (0-3) Neutrophils # (Auto) 1.8 x10^3uL (1.8-7.7) Lymphocytes # (Auto) 1.3 x10^3/uL (1.0-4.8) Monocytes # (Auto) 0.3 x10^3/uL (0.0-1.1) Eosinophils # (Auto) 0.2 x10^3/uL (0.0-0.7) Basophils # (Auto) 0.0 x10^3/uL (0.0-0.2) Sodium Level 139 mmol/L (136-145) Potassium Level 3.8 mmol/L (3.5-5.1) Chloride Level 103 mmol/L (98-107) Carbon Dioxide Level 29 mmol/L (21-32) Anion Gap 7 (6-14) Blood Urea Nitrogen 14 mg/dL (8-26) Creatinine 0.9 mg/dL (0.7-1.3) Estimated GFR (Cockcroft-Gault) 123.4 Glucose Level 85 mg/dL (70-99) Calcium Level 9.3 mg/dL (8.5-10.1) Prothrombin Time 12.6 SEC (11.7-14.0) Prothromb Time International Ratio 1.0 (0.8-1.1) Activated Partial Thromboplast Time 30 SEC (24-38) Laboratory Tests Test 03/06/17 10:30 03/06/17 16:10 White Blood Count 3.6 x10^3/uL (4.0-11.0) Red Blood Count 4.99 x10^6/uL (4.30-5.70) Hemoglobin 16.0 g/dL (13.0-17.5) Hematocrit 47.4 % (39.0-53.0) Mean Corpuscular Volume 95 fL (79-100) Mean Corpuscular Hemoglobin 32 pg (25-35) Mean Corpuscular Hemoglobin Concent 34 g/dL (31-37) Red Cell Distribution Width 13.1 % (11.5-14.5) Platelet Count 179 x10^3/uL (140-400) Neutrophils (%) (Auto) 49 % (31-73) Lymphocytes (%) (Auto) 37 % (24-48) Monocytes (%) (Auto) 9 % (0-9) Eosinophils (%) (Auto) 5 % (0-3) Basophils (%) (Auto) 1 % (0-3) Neutrophils # (Auto) 1.8 x10^3uL (1.8-7.7) Lymphocytes # (Auto) 1.3 x10^3/uL (1.0-4.8) Monocytes # (Auto) 0.3 x10^3/uL (0.0-1.1) Eosinophils # (Auto) 0.2 x10^3/uL (0.0-0.7) Basophils # (Auto) 0.0 x10^3/uL (0.0-0.2) Sodium Level 139 mmol/L (136-145) Potassium Level 3.8 mmol/L (3.5-5.1) Chloride Level 103 mmol/L (98-107) Carbon Dioxide Level 29 mmol/L (21-32) Anion Gap 7 (6-14) Blood Urea Nitrogen 14 mg/dL (8-26) Creatinine 0.9 mg/dL (0.7-1.3) Estimated GFR (Cockcroft-Gault) 123.4 Glucose Level 85 mg/dL (70-99) Calcium Level 9.3 mg/dL (8.5-10.1) Prothrombin Time 12.6 SEC (11.7-14.0) Prothromb Time International Ratio 1.0 (0.8-1.1) Activated Partial Thromboplast Time 30 SEC (24-38) Medications Current Medications Ondansetron HCl (Zofran) 4 mg PRN Q6HRS PRN IV NAUSEA/VOMITING 1ST CHOICE; Start 03/05/17 at 10:30 Prochlorperazine Edisylate (Compazine) 10 mg PRN Q6HRS PRN IV NAUSEA/VOMITING 2ND CHOICE; Start 03/05/17 at 10:30 Prochlorperazine (Compazine) 25 mg PRN Q12HR PRN [place] NAUSEA/VOMITING; Start at 10:30 Al Hydroxide/Mg Hydroxide (Mylanta Plus Xs) 30 ml PRN Q3HRS PRN PO HEARTBURN / GAS; Start 03/05/17 at 10:30 Calcium Carbonate/ Glycine (Tums) 500 mg PRN Q3HRS PRN PO UPSET STOMACH; Start 03/05/17 at 10:30 Oxycodone HCl (Roxicodone) 5 mg PRN Q3HRS PRN PO BREAKTHROUGH PAIN; Start 03/05 at 10:30 Ketorolac Tromethamine (Toradol) 30 mg PRN Q6HRS PRN IV PAIN; Start 03/05/17 at 10:30; Stop 03/10/17 at 10:29 Acetaminophen (Tylenol) 650 mg PRN Q6HRS PRN PO Headaches, Temp > 101.5F; Start 03/05/17 at 10:30 Docusate Sodium (Colace) 100 mg BID PO ; Start 03/05/17 at 11:00 Magnesium Hydroxide (Milk Of Magnesia) 2,400 mg PRN Q12HR PRN PO CONSTIPATION; Start 03/05/17 at 10:30 Lactulose 20 gm PRN Q12HR PRN PO CONSTIPATION; Start 03/05/17 at 10:30 Bisacodyl (Dulcolax Supp) 10 mg PRN DAILY PRN [place] CONSTIPATION; Start 03/05/17 at 10:30 Ibuprofen (Motrin) 600 mg PRN Q6HRS PRN PO INFLAMMATION Last administered on t 12:33; Start 03/05/17 at 11:30 Vitals/I & O Vital Sign - Last 24 Hours 03/06/17 03/06/17 03/06/17 03/06/17 11:00 15:00 19:00 20:00 Temp 97.7 98.2 97.7 97.7 98.2 97.7 Pulse 54 62 56 Resp 20 20 16 B/P (MAP) 125/82 (96) 124/73 (90) 132/86 (101) Pulse Ox 100 99 100 O2 Delivery Nasal Cannula Nasal Cannula Nasal Cannula Nasal Cannula O2 Flow Rate 4.0 4.0 4.0 4.0 03/06/17 03/07/17 03/07/17 03/07/17 23:00 03:00 07:00 07:55 Temp 98.4 98.4 97.7 98.4 98.4 97.7 Pulse 71 54 57 Resp 16 18 16 B/P (MAP) 130/79 (96) 112/66 (81) 110/63 (79) Pulse Ox 97 100 100 O2 Delivery Room Air Nasal Cannula Nasal Cannula Nasal Cannula O2 Flow Rate 4.0 4.0 Intake and Output 03/06/17 03/06/17 03/07/17 15:00 23:00 07:00 Intake Total 600 ml 600 ml Balance 600 ml 600 ml PACO DYSON MD March 07, 2017 09:34
[2017-03-07] MEDS ORDERED: IV NORMAL SALINE 1000ML BAG 1,000 ML IV ONE (09:45)
[2017-03-07] MEDS ORDERED: TALC 4GM AERO.POWD CANISTER. IPL ONE ×4 (10:00)
[2017-03-07] MEDS ORDERED: fentaNYL PF VIAL 100 MCG/2 ML VIAL ONE ×3 (10:24→13:10)
[2017-03-07] MEDS ORDERED: LIDOCAINE 2% PF Vial for OR 5 ML VIAL. ONE (10:24)
[2017-03-07] MEDS ORDERED: MIDAZOLAM HCL/PF 2 MG/2 ML VIAL. ONE ×2 (10:24→10:33)
[2017-03-07] MEDS ORDERED: DEXAMETHASONE SOD PHOS 20 MG/5 ML VIAL. ONE (10:24)
[2017-03-07] MEDS ORDERED: ROCURONIUM 50 MG/5 ML VIAL. ONE (10:24)
[2017-03-07] MEDS ORDERED: PROPOFOL 20 ML IV ONE ×2 (10:24→12:15)
[2017-03-07] MEDS ORDERED: ONDANSETRON PF 4 MG/2 ML VIAL. ONE (10:24)
[2017-03-07] MEDS ORDERED: LIDOCAINE 1% 1 ML SYRINGE. ONE (10:33)
[2017-03-07] MEDS ORDERED: LIDOCAINE 1% 20 ML VIAL. ONE (11:01)
[2017-03-07] MEDS ORDERED: BUPIVACAINE 0.5% 50 ML VIAL. ONE (11:01)
--- NOTE | 2017-03-07 11:19 | PDOC ---
PULMONARY PROGRESS NOTES Subjective still has left CP PTX reduced to 5% Vitals Vital Signs Date Time Temp Pulse Resp B/P (MAP) Pulse Ox O2 Delivery O2 Flow Rate FiO2 03/07/17 10:50 97.9 58 18 120/73 97 Nasal Cannula 97.9 03/07/17 07:55 4.0 General: Alert, No acute distress Lungs: Clear Cardiovascular: S1, S2 Abdomen: Soft Neuro Exam: Alert Extremities: No Edema Skin: Warm Labs Laboratory Tests Test 03/06/17 10:30 03/06/17 16:10 White Blood Count 3.6 x10^3/uL (4.0-11.0) Red Blood Count 4.99 x10^6/uL (4.30-5.70) Hemoglobin 16.0 g/dL (13.0-17.5) Hematocrit 47.4 % (39.0-53.0) Mean Corpuscular Volume 95 fL (79-100) Mean Corpuscular Hemoglobin 32 pg (25-35) Mean Corpuscular Hemoglobin Concent 34 g/dL (31-37) Red Cell Distribution Width 13.1 % (11.5-14.5) Platelet Count 179 x10^3/uL (140-400) Neutrophils (%) (Auto) 49 % (31-73) Lymphocytes (%) (Auto) 37 % (24-48) Monocytes (%) (Auto) 9 % (0-9) Eosinophils (%) (Auto) 5 % (0-3) Basophils (%) (Auto) 1 % (0-3) Neutrophils # (Auto) 1.8 x10^3uL (1.8-7.7) Lymphocytes # (Auto) 1.3 x10^3/uL (1.0-4.8) Monocytes # (Auto) 0.3 x10^3/uL (0.0-1.1) Eosinophils # (Auto) 0.2 x10^3/uL (0.0-0.7) Basophils # (Auto) 0.0 x10^3/uL (0.0-0.2) Sodium Level 139 mmol/L (136-145) Potassium Level 3.8 mmol/L (3.5-5.1) Chloride Level 103 mmol/L (98-107) Carbon Dioxide Level 29 mmol/L (21-32) Anion Gap 7 (6-14) Blood Urea Nitrogen 14 mg/dL (8-26) Creatinine 0.9 mg/dL (0.7-1.3) Estimated GFR (Cockcroft-Gault) 123.4 Glucose Level 85 mg/dL (70-99) Calcium Level 9.3 mg/dL (8.5-10.1) Prothrombin Time 12.6 SEC (11.7-14.0) Prothromb Time International Ratio 1.0 (0.8-1.1) Activated Partial Thromboplast Time 30 SEC (24-38) Laboratory Tests Test 03/06/17 16:10 Prothrombin Time 12.6 SEC (11.7-14.0) Prothromb Time International Ratio 1.0 (0.8-1.1) Activated Partial Thromboplast Time 30 SEC (24-38) Impression . 1. Spontaneous left-sided pneumothorax about 10% in size. I suspect that this may be his second or third episode. He had similar presentations a month ago and also a year ago, but he never had any medical attention at that time. At this point, the pneumothorax has improved with 100%FIO2. CT chest shows apical blebs. 2. History of tobaccoism, half pack per day for 10 years. Plan . 1. Nasal canula 2. Pain control 3. I have discussed with the patient and the mother. It appears clinically that this would be his second or third pneumothorax in the same site, though he never had any medical attention in the past two occasions. CT chest shows apical blebs, he is reasonable candidate for bullectomy/VAT/mechanical pleurodesis. scheduled for today. d/w MIKE Garnica MD March 07, 2017 11:19
[2017-03-07] MEDS ORDERED: NEOSTIGMINE 10 MG/10 ML VIAL. ONE (12:39)
[2017-03-07] MEDS ORDERED: GLYCOPYRROLATE 1 MG/5 ML VIAL. ONE (12:41)
[2017-03-07] MEDS ORDERED: NEOSTIGMINE METHYLSULFATE 5 MG/5 ML SYRINGE. ONE (12:41)
[2017-03-07] MEDS ORDERED: SEVOFLURANE 61 TO 120 MINUTES. IH ONE (12:47)
--- NOTE | 2017-03-07 13:24 | PDOC ---
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
[2017-03-07] MEDS: fentaNYL PF VIAL 100 MCG/2 ML VIAL IV PRN ×2 (13:25→13:38)
[2017-03-07] MEDS ORDERED: IV RINGERS,LACTATED 1000ML 1,000 ML IV SCH (13:32)
[2017-03-07] MEDS ORDERED: LIDOCAINE 1% 1 ML SYRINGE. ID PRN (13:45)
[2017-03-07] MEDS ORDERED: HYDROmorphone 2 MG/ML VIAL IV PRN (13:45)
[2017-03-07] MEDS ORDERED: PROCHLORPERAZINE 10 MG/2 ML VIAL. IV PRN ×2 (13:45→15:15)
[2017-03-07] MEDS ORDERED: ONDANSETRON PF 4 MG/2 ML VIAL. IV PRN ×2 (13:45→15:15)
[2017-03-07] MEDS ORDERED: fentaNYL PF VIAL 100 MCG/2 ML VIAL IV PRN (13:45)
[2017-03-07] MEDS: MORPHINE SULFATE 2 MG/ML DISP.SYRIN. IV PRN ×2 (13:54→14:26)
[2017-03-07 15:00] VITALS: BP 132/78
--- NOTE | 2017-03-07 15:09 | RAD ---
Portable chest, 03/07/2017: History: Postop evaluation, wedge resection and pleurodesis Comparison is made to a study from 03/06/2017. A left chest tube has been inserted. There is a tiny left apical pneumothorax. There appear to be faint surgical sutures in the left apical region with mild underlying parenchymal infiltrate compatible with postsurgical change. The right lung is clear. There is no evidence of pleural fluid. The heart size and pulmonary vascularity are normal. IMPRESSION: 1. Postsurgical change in the left apex. 2. Tiny left apical pneumothorax.
[2017-03-07] MEDS ORDERED: KETOROLAC 15 MG/ML VIAL. IV ONE ×2 (15:15→15:30)
[2017-03-07] MEDS ORDERED: ACETAMINOPHEN 325 MG TABLET. PO PRN (15:15)
[2017-03-07] MEDS ORDERED: MAG HYDROX/ALUMINUM HYD/SIMETH 30 ML ORAL.SUSP PO PRN (15:15)
[2017-03-07] MEDS ORDERED: NALOXONE 0.4 MG/ML VIAL. IV PRN (15:15)
[2017-03-07] MEDS ORDERED: BISACODYL 10 MG SUPP.RECT. PR PRN (15:15)
[2017-03-07] MEDS ORDERED: oxyCODONE/APAP 5/325 1 TAB TABLET PO PRN ×2 (15:15)
[2017-03-07] MEDS ORDERED: 0.9 % SODIUM CHLORIDE 10 ML DISP.SYRIN. IV PRN (15:15)
[2017-03-07] MEDS ORDERED: HYDROmorphone 2 MG/ML VIAL IVP PRN ×2 (15:30)
--- NOTE | 2017-03-07 15:47 | PDOC4 ---
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 Summers is a 26-year-old otherwise healthy male, who presented to our emergency room with acute onset of shortness of breath and left-sided pleuritic pain. On chest x-ray he was found to have a left-sided pneumothorax approximately 10%. This was treated conservatively and has now nearly resolved. The patient reports that he has had 2 analogous episodes which were very bothersome and concerning for him, nevertheless he never seek medical attention. CT of the chest showed that he has a relatively large bleb at the apex of the left upper lobe. There are smaller blebs in the right upper lobe. Considering that this appears to be a recurrent spontaneous pneumothorax, a left VATS bullectomy and pleurodesis were indicated. The risks, benefits and limitations of the procedure explained to the patient who agreed to proceed. Informed consent was obtained. Operation The patient was seen in the preoperative area where his ID was confirmed using 2 unique identifies. His left chest was marked. He was then transferred to the operating room and placed initially in supine position. Anesthesia was induced by the anesthesiologist and the airway was secured with a double lumen ET tube. An arterial line was also placed. The patient was then placed in the right lateral decubitus position with the left side up. A timeout was then performed. The left lung was isolated and a thoracoscopic port was placed in the mid axillary line in the seventh intercostal space. 2 additional ports were placed in the fifth intercostal space at the anterior axillary line and the fifth intercostal space at the posterior to the posterior axillary line. I identified a ruptured bleb at the apex of the left upper lobe. No other abnormalities in the left chest were identified. The ruptured bleb was wedged using 3 blue loads of the endostapler. The specimen was retrieved with a Endo Catch bag. 3 bottles of talc were there sprayed into the left pleural cavity to include all the pleural surfaces including a diaphragmatic. A 24 straight chest tube was then placed through the thoracoscopic port in a posterior to apical position. The tube was secured with #2 silk stitch. An additional pursestring was placed. Hemostasis was confirmed. I then asked anesthesia to ventilate the left lung which fully inflated. A total of 40 mL of local anesthetic which included 0.25% Marcaine with 1% lidocaine were injected into the port incisions. The deep layers of the port incisions were closed with 2-0 Vicryl, followed by 4-0 Monocryl for the epidermis. Dermabond was applied onto the incisions and a sterile dressing was placed around the chest tube. At the end of procedure the instrument, sponge and needle counts were correct. Anesthesia was reversed, the patient was extubated and transferred to the PACU in stable condition having tolerated the procedure well. SAMAN BRODERICK MD March 07, 2017 15:47
[2017-03-07] MEDS: HYDROmorphone 2 MG/ML VIAL IVP PRN ×2 (16:33→19:45)
[2017-03-07] MEDS: oxyCODONE IR 5 MG TABLET PO PRN (17:07)
[2017-03-07 19:45] VITALS: BP 132/77
[2017-03-07] MEDS: SENNOSIDES/DOCUSATE 8.6/50MG TABLET. PO SCH (20:45)
[2017-03-07 23:48] VITALS: BP 138/66
[2017-03-08] MEDS: HYDROmorphone 2 MG/ML VIAL IVP PRN ×5 (02:30→23:55)
[2017-03-08 03:00] VITALS: BP 129/66
[2017-03-08 03:30] LABS: HEMATOCRIT 47.6 % (39.0-53.0); HEMOGLOBIN 16.1 g/dL (13.0-17.5); RED BLOOD COUNT 5.07 x10^6/uL (4.30-5.70); RED CELL DISTRIBUTION WIDTH 13.2 % (11.5-14.5); WHITE BLOOD COUNT 17.5 x10^3/uL (4.0-11.0)
[2017-03-08 03:45] LABS: CALCIUM 10.1 mg/dL (8.5-10.1); CREATININE 1.1 mg/dL (0.7-1.3); GFR 97.9
[2017-03-08] MEDS: oxyCODONE IR 5 MG TABLET PO PRN ×4 (06:05→20:00)
[2017-03-08 07:00] VITALS: BP 148/91
[2017-03-08] MEDS: DOCUSATE SODIUM 100 MG CAPSULE. PO SCH ×2 (07:47→19:58)
[2017-03-08] MEDS: SENNOSIDES/DOCUSATE 8.6/50MG TABLET. PO SCH ×2 (07:49→19:58)
--- NOTE | 2017-03-08 08:44 | RAD ---
Indication: Pneumothorax. Technique: Upright portable chest radiograph was obtained and compared to a study from one day earlier. Findings: Tiny apical pneumothorax on the left persists and is not appreciably changed. Large-caliber left chest tube with the tip at the apex is again noted. Opacity in the left apex may represent postsurgical change or atelectasis. Right lung is clear. Heart is not enlarged. There is no heart failure. Impression: Stable examination. Tiny left apical pneumothorax with adjacent parenchymal opacity which may represent atelectasis or postsurgical change.
--- NOTE | 2017-03-08 10:24 | PDOC ---
PULMONARY PROGRESS NOTES Subjective s/p VAT c/o ongoing pain left cw Vitals Vital Signs Date Time Temp Pulse Resp B/P (MAP) Pulse Ox O2 Delivery O2 Flow Rate FiO2 03/08/17 10:16 20 96 Room Air 2.0 03/08/17 07:00 98.4 83 148/91 (110) 98.4 General: Alert, No acute distress Lungs: Clear Cardiovascular: S1 Abdomen: Soft Neuro Exam: Alert Extremities: No Edema Skin: Warm Labs Laboratory Tests Test 03/06/17 10:30 03/06/17 16:10 03/08/17 03:12 White Blood Count 3.6 x10^3/uL (4.0-11.0) 17.5 x10^3/uL (4.0-11.0) Red Blood Count 4.99 x10^6/uL (4.30-5.70) 5.07 x10^6/uL (4.30-5.70) Hemoglobin 16.0 g/dL (13.0-17.5) 16.1 g/dL (13.0-17.5) Hematocrit 47.4 % (39.0-53.0) 47.6 % (39.0-53.0) Mean Corpuscular Volume 95 fL (79-100) 94 fL (79-100) Mean Corpuscular Hemoglobin 32 pg (25-35) 32 pg (25-35) Mean Corpuscular Hemoglobin Concent 34 g/dL (31-37) 34 g/dL (31-37) Red Cell Distribution Width 13.1 % (11.5-14.5) 13.2 % (11.5-14.5) Platelet Count 179 x10^3/uL (140-400) 184 x10^3/uL (140-400) Neutrophils (%) (Auto) 49 % (31-73) Lymphocytes (%) (Auto) 37 % (24-48) Monocytes (%) (Auto) 9 % (0-9) Eosinophils (%) (Auto) 5 % (0-3) Basophils (%) (Auto) 1 % (0-3) Neutrophils # (Auto) 1.8 x10^3uL (1.8-7.7) Lymphocytes # (Auto) 1.3 x10^3/uL (1.0-4.8) Monocytes # (Auto) 0.3 x10^3/uL (0.0-1.1) Eosinophils # (Auto) 0.2 x10^3/uL (0.0-0.7) Basophils # (Auto) 0.0 x10^3/uL (0.0-0.2) Sodium Level 139 mmol/L (136-145) 137 mmol/L (136-145) Potassium Level 3.8 mmol/L (3.5-5.1) 4.0 mmol/L (3.5-5.1) Chloride Level 103 mmol/L (98-107) 101 mmol/L (98-107) Carbon Dioxide Level 29 mmol/L (21-32) 25 mmol/L (21-32) Anion Gap 7 (6-14) 11 (6-14) Blood Urea Nitrogen 14 mg/dL (8-26) 13 mg/dL (8-26) Creatinine 0.9 mg/dL (0.7-1.3) 1.1 mg/dL (0.7-1.3) Estimated GFR (Cockcroft-Gault) 123.4 97.9 Glucose Level 85 mg/dL (70-99) 123 mg/dL (70-99) Calcium Level 9.3 mg/dL (8.5-10.1) 10.1 mg/dL (8.5-10.1) Prothrombin Time 12.6 SEC (11.7-14.0) Prothromb Time International Ratio 1.0 (0.8-1.1) Activated Partial Thromboplast Time 30 SEC (24-38) Laboratory Tests Test 03/08/17 03:12 White Blood Count 17.5 x10^3/uL (4.0-11.0) Red Blood Count 5.07 x10^6/uL (4.30-5.70) Hemoglobin 16.1 g/dL (13.0-17.5) Hematocrit 47.6 % (39.0-53.0) Mean Corpuscular Volume 94 fL (79-100) Mean Corpuscular Hemoglobin 32 pg (25-35) Mean Corpuscular Hemoglobin Concent 34 g/dL (31-37) Red Cell Distribution Width 13.2 % (11.5-14.5) Platelet Count 184 x10^3/uL (140-400) Sodium Level 137 mmol/L (136-145) Potassium Level 4.0 mmol/L (3.5-5.1) Chloride Level 101 mmol/L (98-107) Carbon Dioxide Level 25 mmol/L (21-32) Anion Gap 11 (6-14) Blood Urea Nitrogen 13 mg/dL (8-26) Creatinine 1.1 mg/dL (0.7-1.3) Estimated GFR (Cockcroft-Gault) 97.9 Glucose Level 123 mg/dL (70-99) Calcium Level 10.1 mg/dL (8.5-10.1) Impression . 1. Spontaneous left-sided pneumothorax about 10% in size POA. I suspect that this may be his second or third episode. He had similar presentations a month ago and also a year ago, but he never had any medical attention at that time. CT chest shows apical blebs. 2. History of tobaccoism, half pack per day for 10 years. 3. Left video-assisted thoracoscopic surgery with left upper lobe wedge resection Talk pleurodesis 4. Small left apical PTX/ air leak small Plan . 1. Nasal canula 2. Pain control 3. s/p bullectomy/VAT/ chemical pleurodesis. 4. Monitor for air leak./ management of chest tube per [facility] MIKE TREJO MD March 08, 2017 10:24
--- NOTE | 2017-03-08 10:54 | PDOC ---
PROGRESS NOTES Chief Complaint Chief Complaint chest pain Recurrent spontaneous left pneumothorax Left upper lobe lung ruptured bullae Nicotine use Itching. Plan s/p Left video-assisted thoracoscopic surgery with left upper lobe wedge resection Talk pleurodesis Nicotine patch PRN pain control Chest tube, CVTS following. History of Present Illness History of Present Illness no fever no chills itching. Vitals Vitals Vital Signs Date Time Temp Pulse Resp B/P (MAP) Pulse Ox O2 Delivery O2 Flow Rate FiO2 03/08/17 10:16 20 96 Room Air 2.0 03/08/17 07:00 98.4 83 148/91 (110) 98.4 Physical Exam General: Alert, Oriented X3, No acute distress Heart: Regular rate, Normal S1, Normal S2 Lungs: Clear Abdomen: Normal bowel sounds, Soft, No tenderness, No hepatosplenomegaly Extremities: No clubbing, No edema, Normal pulses Skin: No significant lesion Labs LABS Laboratory Tests Test 03/08/17 03:12 White Blood Count 17.5 x10^3/uL (4.0-11.0) Red Blood Count 5.07 x10^6/uL (4.30-5.70) Hemoglobin 16.1 g/dL (13.0-17.5) Hematocrit 47.6 % (39.0-53.0) Mean Corpuscular Volume 94 fL (79-100) Mean Corpuscular Hemoglobin 32 pg (25-35) Mean Corpuscular Hemoglobin Concent 34 g/dL (31-37) Red Cell Distribution Width 13.2 % (11.5-14.5) Platelet Count 184 x10^3/uL (140-400) Sodium Level 137 mmol/L (136-145) Potassium Level 4.0 mmol/L (3.5-5.1) Chloride Level 101 mmol/L (98-107) Carbon Dioxide Level 25 mmol/L (21-32) Anion Gap 11 (6-14) Blood Urea Nitrogen 13 mg/dL (8-26) Creatinine 1.1 mg/dL (0.7-1.3) Estimated GFR (Cockcroft-Gault) 97.9 Glucose Level 123 mg/dL (70-99) Calcium Level 10.1 mg/dL (8.5-10.1) Assessment and Plan Assessmemt and Plan Problems Medical Problems: (1) Pneumothorax Status: Acute Problems: Comment Review of Relevant I have reviewed the following items steve (where applicable) has been applied. Labs Laboratory Tests Test 03/06/17 16:10 03/08/17 03:12 Prothrombin Time 12.6 SEC (11.7-14.0) Prothromb Time International Ratio 1.0 (0.8-1.1) Activated Partial Thromboplast Time 30 SEC (24-38) White Blood Count 17.5 x10^3/uL (4.0-11.0) Red Blood Count 5.07 x10^6/uL (4.30-5.70) Hemoglobin 16.1 g/dL (13.0-17.5) Hematocrit 47.6 % (39.0-53.0) Mean Corpuscular Volume 94 fL (79-100) Mean Corpuscular Hemoglobin 32 pg (25-35) Mean Corpuscular Hemoglobin Concent 34 g/dL (31-37) Red Cell Distribution Width 13.2 % (11.5-14.5) Platelet Count 184 x10^3/uL (140-400) Sodium Level 137 mmol/L (136-145) Potassium Level 4.0 mmol/L (3.5-5.1) Chloride Level 101 mmol/L (98-107) Carbon Dioxide Level 25 mmol/L (21-32) Anion Gap 11 (6-14) Blood Urea Nitrogen 13 mg/dL (8-26) Creatinine 1.1 mg/dL (0.7-1.3) Estimated GFR (Cockcroft-Gault) 97.9 Glucose Level 123 mg/dL (70-99) Calcium Level 10.1 mg/dL (8.5-10.1) Laboratory Tests Test 03/08/17 03:12 White Blood Count 17.5 x10^3/uL (4.0-11.0) Red Blood Count 5.07 x10^6/uL (4.30-5.70) Hemoglobin 16.1 g/dL (13.0-17.5) Hematocrit 47.6 % (39.0-53.0) Mean Corpuscular Volume 94 fL (79-100) Mean Corpuscular Hemoglobin 32 pg (25-35) Mean Corpuscular Hemoglobin Concent 34 g/dL (31-37) Red Cell Distribution Width 13.2 % (11.5-14.5) Platelet Count 184 x10^3/uL (140-400) Sodium Level 137 mmol/L (136-145) Potassium Level 4.0 mmol/L (3.5-5.1) Chloride Level 101 mmol/L (98-107) Carbon Dioxide Level 25 mmol/L (21-32) Anion Gap 11 (6-14) Blood Urea Nitrogen 13 mg/dL (8-26) Creatinine 1.1 mg/dL (0.7-1.3) Estimated GFR (Cockcroft-Gault) 97.9 Glucose Level 123 mg/dL (70-99) Calcium Level 10.1 mg/dL (8.5-10.1) Medications Current Medications Ondansetron HCl (Zofran) 4 mg PRN Q6HRS PRN IV NAUSEA/VOMITING 1ST CHOICE Last administered on 03/07/17 20:56; Start 03/05/17 at 10:30 Prochlorperazine Edisylate (Compazine) 10 mg PRN Q6HRS PRN IV NAUSEA/VOMITING 2ND CHOICE Last administered on 03/08/17 08:34; Start 03/05/17 at 10:30 Prochlorperazine (Compazine) 25 mg PRN Q12HR PRN GA NAUSEA/VOMITING; Start at 10:30 Al Hydroxide/Mg Hydroxide (Mylanta Plus Xs) 30 ml PRN Q3HRS PRN PO HEARTBURN / GAS; Start 03/05/17 at 10:30 Calcium Carbonate/ Glycine (Tums) 500 mg PRN Q3HRS PRN PO UPSET STOMACH; Start 03/05/17 at 10:30 Oxycodone HCl (Roxicodone) 5 mg PRN Q3HRS PRN PO BREAKTHROUGH PAIN Last administered on 03/08/17 10:16; Start 03/05/17 at 10:30 Ketorolac Tromethamine (Toradol) 30 mg PRN Q6HRS PRN IV PAIN Last administered on 03/08/17 00:14; Start 03/05/17 at 10:30; Stop 03/10/17 at 10:29 Acetaminophen (Tylenol) 650 mg PRN Q6HRS PRN PO Headaches, Temp > 101.5F; Start 03/05/17 at 10:30 Docusate Sodium (Colace) 100 mg BID PO Last administered on 03/08/17 07:47; Start 03/05/17 at 11:00 Magnesium Hydroxide (Milk Of Magnesia) 2,400 mg PRN Q12HR PRN PO CONSTIPATION 1ST CHOICE; Start 03/05/17 at 10:30 Lactulose 20 gm PRN Q12HR PRN PO CONSTIPATION 2ND CHOICE; Start 03/05/17 at 10: 30 Bisacodyl (Dulcolax Supp) 10 mg PRN DAILY PRN GA CONSTIPATION; Start 03/05/17 at 10:30 Ibuprofen (Motrin) 600 mg PRN Q6HRS PRN PO INFLAMMATION Last administered on 12:33; Start 03/05/17 at 11:30 Sodium Chloride 1,000 ml @ 150 mls/hr 1X ONCE IV Last administered on 10:04; Start 03/07/17 at 09:45; Stop 03/07/17 at 16:24; Status DC Talc (Sclerosol) 16 gm STK-MED ONCE IPL Last administered on 03/07/17 12:23; Start 03/07/17 at 10:00; Stop 03/07/17 at 10:01; Status DC Dexamethasone Sodium Phosphate (Decadron) 20 mg STK-MED ONCE .ROUTE ; Start at 10:24; Stop 03/07/17 at 10:25; Status DC Ondansetron HCl (Zofran) 4 mg STK-MED ONCE .ROUTE ; Start 03/07/17 at 10:24; Stop 03/07/17 at 10:25; Status DC Propofol 20 ml @ As Directed STK-MED ONCE IV ; Start 03/07/17 at 10:24; Stop at 10:25; Status DC Lidocaine HCl (Lidocaine Pf 2% Vial) 5 ml STK-MED ONCE .ROUTE ; Start 03/07/17 at 10:24; Stop 03/07/17 at 10:25; Status DC Fentanyl Citrate (Fentanyl 2ml Vial) 100 mcg STK-MED ONCE .ROUTE ; Start at 10:24; Stop 03/07/17 at 10:25; Status DC Midazolam HCl (Versed) 2 mg STK-MED ONCE .ROUTE ; Start 03/07/17 at 10:24; Stop 03/07/17 at 10:25; Status DC Rocuronium [place] (Zemuron) 50 mg STK-MED ONCE .ROUTE ; Start 03/07/17 at 10:24 ; Stop 03/07/17 at 10:25; Status DC Lidocaine HCl 1 ml STK-MED ONCE .ROUTE ; Start 03/07/17 at 10:33; Stop 03/07/17 at 10:34; Status DC Midazolam HCl (Versed) 2 mg STK-MED ONCE .ROUTE ; Start 03/07/17 at 10:33; Stop 03/07/17 at 10:34; Status DC Bupivacaine HCl (Marcaine 0.5%) 50 ml STK-MED ONCE .ROUTE Last administered on 03/07/17 12:06; Start 03/07/17 at 11:01; Stop 03/07/17 at 11:02; Status DC Lidocaine HCl 20 ml STK-MED ONCE .ROUTE Last administered on 03/07/17 12:06; Start 03/07/17 at 11:01; Stop 03/07/17 at 11:02; Status DC Cefazolin Sodium 50 ml @ 100 mls/hr 1X PREOP IV Last administered on 13:33; Start 03/07/17 at 11:15; Stop 03/08/17 at 18:00 Fentanyl Citrate (Fentanyl 2ml Vial) 100 mcg STK-MED ONCE .ROUTE ; Start at 11:42; Stop 03/07/17 at 11:43; Status DC Propofol 20 ml @ As Directed STK-MED ONCE IV ; Start 03/07/17 at 12:15; Stop at 12:16; Status DC Neostigmine Methylsulfate (Bloxiverz) 10 mg STK-MED ONCE .ROUTE ; Start at 12:39; Stop 03/07/17 at 12:40; Status DC Glycopyrrolate (Robinul) 1 mg STK-MED ONCE .ROUTE ; Start 03/07/17 at 12:41; Stop 03/07/17 at 12:42; Status DC Neostigmine Methylsulfate 5 mg STK-MED ONCE .ROUTE ; Start 03/07/17 at 12:41; Stop 03/07/17 at 12:42; Status DC Sevoflurane (Ultane) 60 ml STK-MED ONCE IH ; Start 03/07/17 at 12:47; Stop 03/07 at 12:48; Status DC Fentanyl Citrate (Fentanyl 2ml Vial) 100 mcg STK-MED ONCE .ROUTE ; Start at 13:10; Stop 03/07/17 at 13:11; Status DC Ondansetron HCl (Zofran) 4 mg PRN Q6HRS PRN IV NAUSEA/VOMITING; Start 03/07/17 at 13:45; Stop 03/08/17 at 13:44 Fentanyl Citrate (Fentanyl 2ml Vial) 25 mcg PRN Q5MIN PRN IV MILD PAIN; Start 03/07/17 at 13:45; Stop 03/08/17 at 13:44 Fentanyl Citrate (Fentanyl 2ml Vial) 50 mcg PRN Q5MIN PRN IV MODERATE PAIN Last administered on 03/07/17 13:38; Start 03/07/17 at 13:45; Stop 03/08/17 at 13:44 Morphine Sulfate 1 mg PRN Q10MIN PRN IV SEVERE PAIN Last administered on 14:26; Start 03/07/17 at 13:45; Stop 03/08/17 at 13:44 Ringer's Solution 1,000 ml @ 30 mls/hr Q24H IV Last administered on 03/07/17 14:50; Start 03/07/17 at 13:32; Stop 03/08/17 at 01:31; Status DC Lidocaine HCl 2 ml PRN 1X PRN ID PRIOR TO IV START; Start 03/07/17 at 13:45; Stop 03/08/17 at 13:44 Hydromorphone HCl (Dilaudid) 0.5 mg PRN Q10MIN PRN IV SEV PAIN, Second choice Last administered on 03/07/17 14:46; Start 03/07/17 at 13:45; Stop 03/08/17 at 13:44 Prochlorperazine Edisylate (Compazine) 5 mg PACU PRN PRN IV NAUSEA, MRX1 Last administered on 03/07/17 13:53; Start 03/07/17 at 13:45; Stop 03/08/17 at 13:44 Talc (Sclerosol) 4 gm STK-MED ONCE IPL ; Start 03/07/17 at 10:00; Stop 03/07/17 at 14:15; Status DC Talc (Sclerosol) 4 gm STK-MED ONCE IPL ; Start 03/07/17 at 10:00; Stop 03/07/17 at 14:15; Status DC Talc (Sclerosol) 4 gm STK-MED ONCE IPL ; Start 03/07/17 at 10:00; Stop 03/07/17 at 14:15; Status DC Ketorolac Tromethamine (Toradol) 15 mg 1X ONCE IV ; Start 03/07/17 at 15:30; Stop 03/07/17 at 15:30; Status DC Al Hydroxide/Mg Hydroxide (Mylanta Plus Xs) 30 ml PRN Q3HRS PRN PO HEARTBURN / GAS; Start 03/07/17 at 15:15; Stop 03/08/17 at 09:10; Status DC Naloxone HCl (Narcan) 0.1 mg PRN Q2MIN PRN IV ADMIN; Start 03/07/17 at 15:15 Sodium Chloride (Normal Saline Flush) 3 ml QSHIFT PRN IV AFTER MEDS AND BLOOD DRAWS; Start 03/07/17 at 15:15 Oxycodone/ Acetaminophen (Percocet 5/325) 1 tab PRN Q4HRS PRN PO MILD PAIN, 1ST CHOICE Last administered on 03/08/17 07:50; Start 03/07/17 at 15:15 Oxycodone/ Acetaminophen (Percocet 5/325) 2 tab PRN Q4HRS PRN PO MODERATE PAIN , SEVERE PAIN Last administered on 03/07/17 19:58; Start 03/07/17 at 15:15 Ketorolac Tromethamine (Toradol) 15 mg 1X ONCE IV Last administered on 15:29; Start 03/07/17 at 15:15; Stop 03/07/17 at 15:26; Status DC Acetaminophen (Tylenol) 650 mg PRN Q6HRS PRN PO Headaches, Temp > 101.5F; Start 03/07/17 at 15:15; Stop 03/08/17 at 09:15; Status DC Ondansetron HCl (Zofran) 4 mg PRN Q6HRS PRN IV NAUESA, 1ST CHOICE; Start at 15:15; Stop 03/08/17 at 09:11; Status DC Prochlorperazine Edisylate (Compazine) 5 mg PRN Q6HRS PRN IV N/V, 2nd Choice, MR X1; Start 03/07/17 at 15:15 Senna/Docusate Sodium (Senna Plus) 1 tab BID PO Last administered on 03/08/17 07:49; Start 03/07/17 at 21:00 Bisacodyl (Dulcolax Supp) 10 mg PRN DAILY PRN GA CONSTIPATION; Start 03/07/17 at 15:15; Stop 03/08/17 at 09:09; Status DC Hydromorphone HCl (Dilaudid) 0.2 mg PRN Q4HRS PRN IVP PAIN; Start 03/07/17 at 15:30; Stop 03/08/17 at 09:10; Status DC Hydromorphone HCl (Dilaudid) 0.2 mg PRN Q4HRS PRN IVP PAIN; Start 03/07/17 at 15:30 Hydromorphone HCl (Dilaudid) 1 mg PRN Q4HRS PRN IVP PAIN Last administered on 19:45; Start 03/07/17 at 16:30 Hydromorphone HCl (Dilaudid) 2 mg PRN Q4HRS PRN IVP PAIN Last administered on 07:51; Start 03/07/17 at 16:30 Vitals/I & O Vital Sign - Last 24 Hours 03/07/17 03/07/17 03/07/17 03/07/17 13:17 13:25 13:30 13:32 Temp 97.7 97.7 Pulse 66 84 Resp 12 15 20 B/P (MAP) 179/90 154/100 Pulse Ox 100 100 100 O2 Delivery Simple Mask Nasal Cannula Mask Simple Mask O2 Flow Rate 10 10.0 10 10 03/07/17 03/07/17 03/07/17 03/07/17 13:38 13:45 13:54 14:00 Pulse 78 73 Resp 15 22 20 20 B/P (MAP) 181/100 176/94 Pulse Ox 100 99 99 100 O2 Delivery Nasal Cannula Simple Mask Aerosol Mask Simple Mask O2 Flow Rate 10.0 10 10.0 10 5/03/07/17 03/07/17 03/07/17 14:15 14:26 14:30 14:45 Temp 98.8 98.8 Pulse 78 78 84 Resp 22 20 20 20 B/P (MAP) 167/94 163/94 160/90 Pulse Ox 100 99 100 100 O2 Delivery Nasal Cannula Nasal Cannula Nasal Cannula Nasal Cannula O2 Flow Rate 2 2.0 2 2 03/07/17 03/07/17 03/07/17 03/07/17 14:45 14:46 14:55 15:00 Temp 98.5 98.5 Pulse 82 Resp 22 22 14 B/P (MAP) 132/78 (96) Pulse Ox 100 100 O2 Delivery Nasal Cannula Nasal Cannula Nasal Cannula Nasal Cannula O2 Flow Rate 2 2.0 2 3.0 03/07/17 03/07/17 03/07/17 03/07/17 16:33 17:04 17:07 19:26 Resp 16 16 Pulse Ox 100 100 O2 Delivery Nasal Cannula Nasal Cannula O2 Flow Rate 3.0 03/07/17 03/07/17 03/07/17 03/07/17 19:45 19:45 19:58 20:00 Temp 98.5 98.5 Pulse 60 Resp 16 B/P (MAP) 132/77 (95) Pulse Ox 100 O2 Delivery Nasal Cannula Nasal Cannula Nasal Cannula Nasal Cannula O2 Flow Rate 4.0 4.0 4.0 4.0 03/07/17 03/07/17 03/07/17 03/08/17 20:15 20:58 23:48 02:30 Temp 99.0 99.0 Pulse 57 Resp 18 B/P (MAP) 138/66 (90) Pulse Ox 100 O2 Delivery Nasal Cannula Nasal Cannula Nasal Cannula Nasal Cannula O2 Flow Rate 4.0 4.0 4.0 4.0 03/08/17 03/08/17 03/08/17 03/08/17 03:00 03:00 06:05 07:00 Temp 98.9 98.4 98.9 98.4 Pulse 56 83 Resp 16 18 B/P (MAP) 129/66 (87) 148/91 (110) Pulse Ox 100 100 O2 Delivery Nasal Cannula Nasal Cannula Room Air O2 Flow Rate 4.0 4.0 4.0 03/08/17 03/08/17 03/08/17 03/08/17 07:31 07:50 07:51 08:49 Resp 20 Pulse Ox 100 100 100 98 O2 Delivery Nasal Cannula Nasal Cannula Nasal Cannula Nasal Cannula O2 Flow Rate 4.0 4.0 4.0 03/08/17 03/08/17 03/08/17 08:49 08:53 10:16 Resp 20 20 Pulse Ox 98 96 O2 Delivery Nasal Cannula Nasal Cannula Room Air O2 Flow Rate 4.0 2.0 Intake and Output 03/07/17 03/07/17 03/08/17 15:00 23:00 07:00 Intake Total 1075 ml 600 ml 200 ml Output Total 65 ml 600 ml 490 ml Balance 1010 ml 0 ml -290 ml JULIO WILKINSON MD March 08, 2017 10:53
[2017-03-08 11:02] VITALS: BP 128/84
[2017-03-08] MEDS ORDERED: diphenhydrAMINE HCL 25 MG CAPSULE PO PRN (11:15)
[2017-03-08] MEDS ORDERED: KETOROLAC 15 MG/ML VIAL. IV ONE (14:30)
--- NOTE | 2017-03-08 14:41 | PDOC ---
Progress Note Subjective Subjective Complains of pain around chest tube. No air, minimal drainage. ROS ROS No nausea No vomiting No pain No rash Vital Sign Vital Signs Vital Signs Date Time Temp Pulse Resp B/P (MAP) Pulse Ox O2 Delivery O2 Flow Rate FiO2 03/08/17 13:14 97 Nasal Cannula 2.0 03/08/17 11:17 20 03/08/17 11:02 98.8 76 128/84 (99) 98.8 Physical Exam PHYSICAL EXAM GENERAL: NAD, Alert HEENT: PERRL, OC/OP NECK: Supple, no JVD, no LN LUNGS: Clear HEART: S1S2, no gallop, no murmur ABD: Soft, NT, no organomegaly, no rebound EXT: No edema, no cyanosis PARALEGAL SPECIALIST: Alert, oriented x 3, no focal neurologic deficit SKIN: No rash IV: ok Labs Lab Laboratory Tests Test 03/08/17 03:12 White Blood Count 17.5 x10^3/uL (4.0-11.0) Red Blood Count 5.07 x10^6/uL (4.30-5.70) Hemoglobin 16.1 g/dL (13.0-17.5) Hematocrit 47.6 % (39.0-53.0) Mean Corpuscular Volume 94 fL (79-100) Mean Corpuscular Hemoglobin 32 pg (25-35) Mean Corpuscular Hemoglobin Concent 34 g/dL (31-37) Red Cell Distribution Width 13.2 % (11.5-14.5) Platelet Count 184 x10^3/uL (140-400) Sodium Level 137 mmol/L (136-145) Potassium Level 4.0 mmol/L (3.5-5.1) Chloride Level 101 mmol/L (98-107) Carbon Dioxide Level 25 mmol/L (21-32) Anion Gap 11 (6-14) Blood Urea Nitrogen 13 mg/dL (8-26) Creatinine 1.1 mg/dL (0.7-1.3) Estimated GFR (Cockcroft-Gault) 97.9 Glucose Level 123 mg/dL (70-99) Calcium Level 10.1 mg/dL (8.5-10.1) Objective Assessment POD#1, s/p L VATS wedge of ruptured bullous and talc pleurodesis. Has pain from chest tube. No air leak. minimal drainage. Plan Plan of Care Keep chest tube to suction for one more day Tube to water seal tomorrow morning, then CXR Will d/c chest tube tomorrow, if lung remains fully expanded on water seal. Analgesia Lovenox for DVT prophylaxis SAMAN BRODERICK MD March 08, 2017 14:41
[2017-03-08 15:59] VITALS: BP 130/76
[2017-03-08] MEDS: diphenhydrAMINE HCL 25 MG CAPSULE PO PRN ×2 (16:31→23:51)
[2017-03-08 19:00] VITALS: BP 122/70
[2017-03-08] MEDS ORDERED: ENOXAPARIN 40 MG/0.4 ML SYRINGE. SQ SCH (21:00)
[2017-03-08 23:00] VITALS: BP 127/60
[2017-03-09 03:00] VITALS: BP 128/85
[2017-03-09] MEDS: HYDROmorphone 2 MG/ML VIAL IVP PRN (05:24)
[2017-03-09 07:00] VITALS: BP 129/90
--- NOTE | 2017-03-09 08:52 | RAD ---
Indication: Left pneumothorax. Post VAT. Technique: AP portable chest radiograph was obtained. Comparison is from one day earlier. Findings: Left chest tube is stable in position. Small left apical pneumothorax again is suspected with adjacent opacity. Right lung is clear. Heart is not enlarged. Impression: Stable exam.
[2017-03-09] MEDS: oxyCODONE IR 5 MG TABLET PO PRN (09:22)
[2017-03-09] MEDS: SENNOSIDES/DOCUSATE 8.6/50MG TABLET. PO SCH (09:22)
[2017-03-09] MEDS: DOCUSATE SODIUM 100 MG CAPSULE. PO SCH (09:22)
--- NOTE | 2017-03-09 10:29 | PDOC ---
PULMONARY PROGRESS NOTES Subjective s/p VAT Girl friend wants to have chest tube out and take him home Per Girlfriend ("He is on my insurance and I am paying the bills) Vitals Vital Signs Date Time Temp Pulse Resp B/P (MAP) Pulse Ox O2 Delivery O2 Flow Rate FiO2 03/09/17 09:22 97 Nasal Cannula 4.0 03/09/17 07:00 98.9 65 18 129/90 (103) 98.9 General: Alert, No acute distress Lungs: Clear Cardiovascular: S1 Abdomen: Soft Neuro Exam: Alert Extremities: No Edema Skin: Warm Labs Laboratory Tests Test 03/08/17 03:12 White Blood Count 17.5 x10^3/uL (4.0-11.0) Red Blood Count 5.07 x10^6/uL (4.30-5.70) Hemoglobin 16.1 g/dL (13.0-17.5) Hematocrit 47.6 % (39.0-53.0) Mean Corpuscular Volume 94 fL (79-100) Mean Corpuscular Hemoglobin 32 pg (25-35) Mean Corpuscular Hemoglobin Concent 34 g/dL (31-37) Red Cell Distribution Width 13.2 % (11.5-14.5) Platelet Count 184 x10^3/uL (140-400) Sodium Level 137 mmol/L (136-145) Potassium Level 4.0 mmol/L (3.5-5.1) Chloride Level 101 mmol/L (98-107) Carbon Dioxide Level 25 mmol/L (21-32) Anion Gap 11 (6-14) Blood Urea Nitrogen 13 mg/dL (8-26) Creatinine 1.1 mg/dL (0.7-1.3) Estimated GFR (Cockcroft-Gault) 97.9 Glucose Level 123 mg/dL (70-99) Calcium Level 10.1 mg/dL (8.5-10.1) Comments ? tiny left apical PTX Impression . 1. Spontaneous left-sided pneumothorax POA. I suspect that this may be his second or third episode. He had similar presentations a month ago and also a year ago, but he never had any medical attention at that time. CT chest shows apical blebs. 2. History of tobaccoism, half pack per day for 10 years. 3. Left video-assisted thoracoscopic surgery with left upper lobe wedge resection Talk pleurodesis 4. ? Small left apical PTX/ air leak small with coughing only Plan . 1. Nasal canula 2. Pain control 3. s/p bullectomy/VAT/ chemical pleurodesis. 4. management of chest tube per [facility], on water seal now 5. I have explained to the girl friend that I will leave upto [facility] for management of chest tube. She wants to have ct removed and take him home today MIKE TREJO MD March 09, 2017 10:29
[2017-03-09 11:24] VITALS: BP 120/77
--- NOTE | 2017-03-09 11:53 | PDOC ---
PROGRESS NOTES Chief Complaint Chief Complaint chest pain Recurrent spontaneous left pneumothorax Left upper lobe lung ruptured bullae Nicotine use Itching. Plan s/p Left video-assisted thoracoscopic surgery with left upper lobe wedge resection Talk pleurodesis Nicotine patch PRN pain control Chest tube, CVTS following. History of Present Illness History of Present Illness no fever no chills itching. 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 Labs Laboratory Tests Test 03/08/17 03:12 White Blood Count 17.5 x10^3/uL (4.0-11.0) Red Blood Count 5.07 x10^6/uL (4.30-5.70) Hemoglobin 16.1 g/dL (13.0-17.5) Hematocrit 47.6 % (39.0-53.0) Mean Corpuscular Volume 94 fL (79-100) Mean Corpuscular Hemoglobin 32 pg (25-35) Mean Corpuscular Hemoglobin Concent 34 g/dL (31-37) Red Cell Distribution Width 13.2 % (11.5-14.5) Platelet Count 184 x10^3/uL (140-400) Sodium Level 137 mmol/L (136-145) Potassium Level 4.0 mmol/L (3.5-5.1) Chloride Level 101 mmol/L (98-107) Carbon Dioxide Level 25 mmol/L (21-32) Anion Gap 11 (6-14) Blood Urea Nitrogen 13 mg/dL (8-26) Creatinine 1.1 mg/dL (0.7-1.3) Estimated GFR (Cockcroft-Gault) 97.9 Glucose Level 123 mg/dL (70-99) Calcium Level 10.1 mg/dL (8.5-10.1) Medications Current Medications Ondansetron HCl (Zofran) 4 mg PRN Q6HRS PRN IV NAUSEA/VOMITING 1ST CHOICE Last administered on 03/07/17 20:56; Start 03/05/17 at 10:30 Prochlorperazine Edisylate (Compazine) 10 mg PRN Q6HRS PRN IV NAUSEA/VOMITING 2ND CHOICE Last administered on 03/08/17 08:34; Start 03/05/17 at 10:30 Prochlorperazine (Compazine) 25 mg PRN Q12HR PRN SC NAUSEA/VOMITING; Start at 10:30 Al Hydroxide/Mg Hydroxide (Mylanta Plus Xs) 30 ml PRN Q3HRS PRN PO HEARTBURN / GAS; Start 03/05/17 at 10:30 Calcium Carbonate/ Glycine (Tums) 500 mg PRN Q3HRS PRN PO UPSET STOMACH; Start 03/05/17 at 10:30 Oxycodone HCl (Roxicodone) 5 mg PRN Q3HRS PRN PO BREAKTHROUGH PAIN Last administered on 03/09/17 09:22; Start 03/05/17 at 10:30 Ketorolac Tromethamine (Toradol) 30 mg PRN Q6HRS PRN IV PAIN Last administered on 03/08/17 00:14; Start 03/05/17 at 10:30; Stop 03/10/17 at 10:29 Acetaminophen (Tylenol) 650 mg PRN Q6HRS PRN PO Headaches, Temp > 101.5F Last administered on 03/08/17 23:51; Start 03/05/17 at 10:30 Docusate Sodium (Colace) 100 mg BID PO Last administered on 03/09/17 09:22; Start 03/05/17 at 11:00 Magnesium Hydroxide (Milk Of Magnesia) 2,400 mg PRN Q12HR PRN PO CONSTIPATION 1ST CHOICE; Start 03/05/17 at 10:30 Lactulose 20 gm PRN Q12HR PRN PO CONSTIPATION 2ND CHOICE; Start 03/05/17 at 10: 30 Bisacodyl (Dulcolax Supp) 10 mg PRN DAILY PRN SC CONSTIPATION; Start 03/05/17 at 10:30 Ibuprofen (Motrin) 600 mg PRN Q6HRS PRN PO INFLAMMATION Last administered on 12:33; Start 03/05/17 at 11:30 Sodium Chloride 1,000 ml @ 150 mls/hr 1X ONCE IV Last administered on 10:04; Start 03/07/17 at 09:45; Stop 03/07/17 at 16:24; Status DC Talc (Sclerosol) 16 gm STK-MED ONCE IPL Last administered on 03/07/17 12:23; Start 03/07/17 at 10:00; Stop 03/07/17 at 10:01; Status DC Dexamethasone Sodium Phosphate (Decadron) 20 mg STK-MED ONCE .ROUTE ; Start at 10:24; Stop 03/07/17 at 10:25; Status DC Ondansetron HCl (Zofran) 4 mg STK-MED ONCE .ROUTE ; Start 03/07/17 at 10:24; Stop 03/07/17 at 10:25; Status DC Propofol 20 ml @ As Directed STK-MED ONCE IV ; Start 03/07/17 at 10:24; Stop at 10:25; Status DC Lidocaine HCl (Lidocaine Pf 2% Vial) 5 ml STK-MED ONCE .ROUTE ; Start 03/07/17 at 10:24; Stop 03/07/17 at 10:25; Status DC Fentanyl Citrate (Fentanyl 2ml Vial) 100 mcg STK-MED ONCE .ROUTE ; Start at 10:24; Stop 03/07/17 at 10:25; Status DC Midazolam HCl (Versed) 2 mg STK-MED ONCE .ROUTE ; Start 03/07/17 at 10:24; Stop 03/07/17 at 10:25; Status DC Rocuronium [place] (Zemuron) 50 mg STK-MED ONCE .ROUTE ; Start 03/07/17 at 10:24 ; Stop 03/07/17 at 10:25; Status DC Lidocaine HCl 1 ml STK-MED ONCE .ROUTE ; Start 03/07/17 at 10:33; Stop 03/07/17 at 10:34; Status DC Midazolam HCl (Versed) 2 mg STK-MED ONCE .ROUTE ; Start 03/07/17 at 10:33; Stop 03/07/17 at 10:34; Status DC Bupivacaine HCl (Marcaine 0.5%) 50 ml STK-MED ONCE .ROUTE Last administered on 03/07/17 12:06; Start 03/07/17 at 11:01; Stop 03/07/17 at 11:02; Status DC Lidocaine HCl 20 ml STK-MED ONCE .ROUTE Last administered on 03/07/17 12:06; Start 03/07/17 at 11:01; Stop 03/07/17 at 11:02; Status DC Cefazolin Sodium 50 ml @ 100 mls/hr 1X PREOP IV Last administered on 13:33; Start 03/07/17 at 11:15; Stop 03/08/17 at 18:00; Status DC Fentanyl Citrate (Fentanyl 2ml Vial) 100 mcg STK-MED ONCE .ROUTE ; Start at 11:42; Stop 03/07/17 at 11:43; Status DC Propofol 20 ml @ As Directed STK-MED ONCE IV ; Start 03/07/17 at 12:15; Stop at 12:16; Status DC Neostigmine Methylsulfate (Bloxiverz) 10 mg STK-MED ONCE .ROUTE ; Start at 12:39; Stop 03/07/17 at 12:40; Status DC Glycopyrrolate (Robinul) 1 mg STK-MED ONCE .ROUTE ; Start 03/07/17 at 12:41; Stop 03/07/17 at 12:42; Status DC Neostigmine Methylsulfate 5 mg STK-MED ONCE .ROUTE ; Start 03/07/17 at 12:41; Stop 03/07/17 at 12:42; Status DC Sevoflurane (Ultane) 60 ml STK-MED ONCE IH ; Start 03/07/17 at 12:47; Stop 03/07 at 12:48; Status DC Fentanyl Citrate (Fentanyl 2ml Vial) 100 mcg STK-MED ONCE .ROUTE ; Start at 13:10; Stop 03/07/17 at 13:11; Status DC Ondansetron HCl (Zofran) 4 mg PRN Q6HRS PRN IV NAUSEA/VOMITING; Start 03/07/17 at 13:45; Stop 03/08/17 at 13:44; Status DC Fentanyl Citrate (Fentanyl 2ml Vial) 25 mcg PRN Q5MIN PRN IV MILD PAIN; Start 03/07/17 at 13:45; Stop 03/08/17 at 13:44; Status DC Fentanyl Citrate (Fentanyl 2ml Vial) 50 mcg PRN Q5MIN PRN IV MODERATE PAIN Last administered on 03/07/17 13:38; Start 03/07/17 at 13:45; Stop 03/08/17 at 13:44; Status DC Morphine Sulfate 1 mg PRN Q10MIN PRN IV SEVERE PAIN Last administered on 14:26; Start 03/07/17 at 13:45; Stop 03/08/17 at 13:44; Status DC Ringer's Solution 1,000 ml @ 30 mls/hr Q24H IV Last administered on 03/07/17 14:50; Start 03/07/17 at 13:32; Stop 03/08/17 at 01:31; Status DC Lidocaine HCl 2 ml PRN 1X PRN ID PRIOR TO IV START; Start 03/07/17 at 13:45; Stop 03/08/17 at 13:44; Status DC Hydromorphone HCl (Dilaudid) 0.5 mg PRN Q10MIN PRN IV SEV PAIN, Second choice Last administered on 03/07/17 14:46; Start 03/07/17 at 13:45; Stop 03/08/17 at 13:44; Status DC Prochlorperazine Edisylate (Compazine) 5 mg PACU PRN PRN IV NAUSEA, MRX1 Last administered on 03/07/17 13:53; Start 03/07/17 at 13:45; Stop 03/08/17 at 13:44 ; Status DC Talc (Sclerosol) 4 gm STK-MED ONCE IPL ; Start 03/07/17 at 10:00; Stop 03/07/17 at 14:15; Status DC Talc (Sclerosol) 4 gm STK-MED ONCE IPL ; Start 03/07/17 at 10:00; Stop 03/07/17 at 14:15; Status DC Talc (Sclerosol) 4 gm STK-MED ONCE IPL ; Start 03/07/17 at 10:00; Stop 03/07/17 at 14:15; Status DC Ketorolac Tromethamine (Toradol) 15 mg 1X ONCE IV ; Start 03/07/17 at 15:30; Stop 03/07/17 at 15:30; Status DC Al Hydroxide/Mg Hydroxide (Mylanta Plus Xs) 30 ml PRN Q3HRS PRN PO HEARTBURN / GAS; Start 03/07/17 at 15:15; Stop 03/08/17 at 09:10; Status DC Naloxone HCl (Narcan) 0.1 mg PRN Q2MIN PRN IV ADMIN; Start 03/07/17 at 15:15 Sodium Chloride (Normal Saline Flush) 3 ml QSHIFT PRN IV AFTER MEDS AND BLOOD DRAWS; Start 03/07/17 at 15:15 Oxycodone/ Acetaminophen (Percocet 5/325) 1 tab PRN Q4HRS PRN PO MILD PAIN, 1ST CHOICE Last administered on 03/08/17 07:50; Start 03/07/17 at 15:15 Oxycodone/ Acetaminophen (Percocet 5/325) 2 tab PRN Q4HRS PRN PO MODERATE PAIN , SEVERE PAIN Last administered on 03/07/17 19:58; Start 03/07/17 at 15:15 Ketorolac Tromethamine (Toradol) 15 mg 1X ONCE IV Last administered on t 15:29; Start 03/07/17 at 15:15; Stop 03/07/17 at 15:26; Status DC Acetaminophen (Tylenol) 650 mg PRN Q6HRS PRN PO Headaches, Temp > 101.5F; Start 03/07/17 at 15:15; Stop 03/08/17 at 09:15; Status DC Ondansetron HCl (Zofran) 4 mg PRN Q6HRS PRN IV NAUESA, 1ST CHOICE; Start at 15:15; Stop 03/08/17 at 09:11; Status DC Prochlorperazine Edisylate (Compazine) 5 mg PRN Q6HRS PRN IV N/V, 2nd Choice, MR X1; Start 03/07/17 at 15:15 Senna/Docusate Sodium (Senna Plus) 1 tab BID PO Last administered on 03/09/17 09:22; Start 03/07/17 at 21:00 Bisacodyl (Dulcolax Supp) 10 mg PRN DAILY PRN SC CONSTIPATION; Start 03/07/17 at 15:15; Stop 03/08/17 at 09:09; Status DC Hydromorphone HCl (Dilaudid) 0.2 mg PRN Q4HRS PRN IVP PAIN; Start 03/07/17 at 15:30; Stop 03/08/17 at 09:10; Status DC Hydromorphone HCl (Dilaudid) 0.2 mg PRN Q4HRS PRN IVP PAIN; Start 03/07/17 at 15:30; Stop 03/08/17 at 16:13; Status DC Hydromorphone HCl (Dilaudid) 1 mg PRN Q4HRS PRN IVP PAIN Last administered on 19:45; Start 03/07/17 at 16:30 Hydromorphone HCl (Dilaudid) 2 mg PRN Q4HRS PRN IVP PAIN Last administered on 05:24; Start 03/07/17 at 16:30 Diphenhydramine HCl (Benadryl) 25 mg PRN BID PRN PO ITCHING Last administered on 03/08/17 12:21; Start 03/08/17 at 11:15; Stop 03/08/17 at 16:13; Status DC Ketorolac Tromethamine (Toradol) 15 mg 1X ONCE IV Last administered on 14:38; Start 03/08/17 at 14:30; Stop 03/08/17 at 14:31; Status DC Enoxaparin Sodium (Lovenox 40mg Syringe) 40 mg QHS SQ Last administered on 03/08 20:01; Start 03/08/17 at 21:00 Diphenhydramine HCl (Benadryl) 25 mg PRN TID PRN PO ITCHING Last administered on 03/08/17t 23:51; Start 03/08/17 at 16:15 Vitals/I & O Vital Sign - Last 24 Hours 03/08/17 03/08/17 03/08/17 03/08/17 12:22 13:14 15:59 16:31 Temp 99.0 99.0 Pulse 74 Resp 18 B/P (MAP) 130/76 (94) Pulse Ox 97 97 98 98 O2 Delivery Nasal Cannula Room Air Nasal Cannula O2 Flow Rate 2.0 2.0 03/08/17 03/08/17 03/08/17 03/08/17 19:00 20:00 20:00 20:00 Temp 97.9 97.9 Pulse 72 Resp 18 B/P (MAP) 122/70 (87) Pulse Ox 100 O2 Delivery Room Air Nasal Cannula Nasal Cannula Nasal Cannula O2 Flow Rate 2.0 2.0 2.0 03/08/17 03/08/17 03/08/17 03/09/17 20:30 23:00 23:55 03:00 Temp 99.9 99.0 99.9 99.0 Pulse 91 86 Resp 18 18 B/P (MAP) 127/60 (82) 128/85 (99) Pulse Ox 98 97 O2 Delivery Room Air Room Air Room Air O2 Flow Rate 2.0 03/09/17 03/09/17 03/09/17 03/09/17 05:24 05:54 07:00 08:23 Temp 98.9 98.9 Pulse 65 Resp 18 B/P (MAP) 129/90 (103) Pulse Ox 97 O2 Delivery Room Air Room Air Room Air Nasal Cannula O2 Flow Rate 4.0 03/09/17 03/09/17 03/09/17 09:22 10:47 11:24 Temp 99.0 99.0 Pulse 72 Resp 18 B/P (MAP) 120/77 (91) Pulse Ox 97 97 100 O2 Delivery Nasal Cannula Nasal Cannula Nasal Cannula O2 Flow Rate 4.0 4.0 Intake and Output 03/08/17 03/08/17 03/09/17 15:00 23:00 07:00 Intake Total 725 ml 1400 ml Output Total 3850 ml 1525 ml Balance 725 ml -2450 ml -1525 ml JULIO WILKINSON MD March 09, 2017 11:53
--- NOTE | 2017-03-09 12:38 | PDOC ---
Progress Note Subjective Subjective Complains of pain around chest tube. No air leak, minimal drainage. Left lung fully expanded on water seal. 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 Has pain from chest tube. No air leak. Lung fully expanded on water seal. Plan Plan of Care D/c chest tube, then CXR D/c home F/u in clinic in 3 weeks with CXR beforehand SAMAN BRODERICK MD March 09, 2017 12:38
--- NOTE | 2017-03-09 13:01 | RAD ---
Indication: Chest tube removal. Technique: Upright portable chest radiograph was obtained and compared to a study from earlier today. Findings: Left chest tube has been removed. There is no change in size of the suspected small apical pneumothorax. Left apical opacity is unchanged. Right lung is clear. Heart is not enlarged and there is no heart failure. Bony structures are intact. Leads overlie the patient. Impression: No increase in size of the pneumothorax post chest tube removal.
--- NOTE | 2017-03-09 21:15 | DS ---
DATE OF DISCHARGE: 03/09/2017 DISCHARGE DIAGNOSES: 1. Status post video-assisted thoracoscopic surgery wedge of ruptured bulla and talc pleurodesis status post chest tube removed. 2. History of nicotine use. 3. Left upper lobe and ruptured bulla recurrent spontaneous left pneumothorax. BRIEF HOSPITAL COURSE: A 26-year-old male patient with prior history of nicotine abuse and recurrent left-sided pneumothorax, presented to the hospital with shortness of breath and chest pain, he was diagnosed with recurrent pneumothorax, possible third episode. He was evaluated by thoracic surgeon, Dr. Kulkarni, had him left video-assisted thoracoscopic surgery with left upper lobe wedge resection and talc pleurodesis, postsurgery he was placed in the chest tube and clinically improved. Today after clinical stabilization, the patient deemed stable enough to go home and follow up with Dr. Kulkarni's in 3 weeks. DISCHARGE EXAMINATION: GENERAL: Alert, oriented x 3. HEART: S1, S2 present. LUNGS: Chest clear. ABDOMEN: Soft, nontender, no organomegaly. EXTREMITIES: No edema. DISCHARGE DISPOSITION: Home. DISCHARGE CONDITION: Stable. FOLLOWUP: With Dr. Kulkarni within 3 weeks. DISCHARGE MEDICATIONS: 1. New scripts provided. 2. Counseling provided to quite smoking Total time spent for discharge is 31 minutes for patient education, counseling, and coordination of care. JULIO WILKINSON MD DR: KHAI/adrián JOB#: [id number] / [id number] MORRO
--- NOTE | 2017-03-11 17:00 | PATHOLOGY ---
PATHOLOGY REPORT * * * * * * * * FINAL DIAGNOSIS: Segment of lung tissue, left upper lobe video-assisted thoracoscopic wedge resection: - Blebs with focal subpleural interstitial fibrosis and chronic inflammation and focal organizing pneumonia. - Congestion and atelectasis. COMMENT: There is no evidence of malignancy. (JPM:mml; d/t: 03/11/2017) REPORT ELECTRONICALLY SIGNED BY: Max Perkins M.D. DATE/TIME: 03/11/2017 16:54 * * * * * * * * GROSS PATHOLOGY: The specimen is received in formalin labeled "Diego Summers, left upper lobe wedge bleb". Received is a segment of blue-ornelas lung tissue measuring 4.0 x 3.7 x 1.8 cm in greatest dimensions. The astrid are removed of the new margin is inked black. Sectioning reveals white-gonzales to light brown cut surfaces. The specimen is submitted representatively in cassettes A1 through A3. (CAA; 03/10/2017) INITIAL CPT CODE(S): 77663 Professional services performed [place] [facility] [address] Technical services performed by [facility] at [address] [place] [address]. SPECIMEN(S) RECEIVED: A.Left upper lobe wedge bleb CLINICAL HISTORY: Pneumothorax PATIENT: DIEGO SUMMERS /AGE: 2 1990 (Age: 26) PATIENT #: [id number] ALT CASE #: SPECIMEN COLLECTION DATE: 03/07/2017 SPECIMEN RECEIVED DATE: 03/07/2017 [facility] - [address] [place] [address] - PHONE: [phone] * * * END OF REPORT * * *
== END 2017-03-09 16:10 | disposition home or self-care (01) | DRG 165 ==
LOC: ER 09:17 → 4 NORTH 10:00 → 2 NORTH 03-07 14:55
PROVIDERS: ADMIT Internal Medicine; ATTEND Internal Medicine
PROC: 3E0L3GC Introduction of Other Therapeutic Substance into Pleural Cavity, Percutaneous Approach (ICD-10-PCS; 2017-03-07)
PROC: 0BBG4ZZ Excision of Left Upper Lung Lobe, Percutaneous Endoscopic Approach (ICD-10-PCS; principal; 2017-03-07 12:45)
DX: J93.83 Other pneumothorax (principal); J43.9 Emphysema, unspecified; J93.82 Other air leak; F17.210 Nicotine dependence, cigarettes, uncomplicated; F12.90 Cannabis use, unspecified, uncomplicated; Z82.49 Family history of ischemic heart disease and other diseases of the circulatory system; Z84.89 Family history of other specified conditions
CPT/HCPCS: 36415; 71010; 71020; 71250; 80048; 85027; 85610; 85730; 86850; 86900; 86901; 88305; 93005; G0378; J0690; J0780; J1100; J1170; J1650; J1885; J2250; J2270; J2405; J2704; J2710; J3010; J3490; J7030; J7120; Q0163; 99285-25; J2001

== ENCOUNTER → 2017-03-14 | Outpatient (CLI) | payer OTHER ==
[2017-03-09 11:24] VITALS: BP 120/77
--- NOTE | 2017-03-14 15:41 | RAD ---
Chest, 2 views, 03/14/2017: History: Follow-up pneumothorax Comparison is made to a study from 03/09/2017. The left chest tube has been removed. The heart size is normal. There is a persistent left apical opacity compatible with postsurgical change. There is an air-fluid level projected over the left apex compatible with a small loculated hydropneumothorax. This is larger than the tiny apical pneumothorax evident on the previous exam. No significant free pleural fluid is evident in the costophrenic angles. The right chest is clear. IMPRESSION: 1. Persistent mild left apical opacity compatible with postsurgical change. 2. Small left apical hydropneumothorax.
== END | disposition home or self-care (01) ==
LOC: RAD 15:08
PROVIDERS: ATTEND Thoracic Surgery (Cardiothoracic Vascular Surgery)
DX: J93.9 Pneumothorax, unspecified (principal)
CPT/HCPCS: 71020